=== PATIENT | female | born 1955 | race Caucasian/White ===

== ENCOUNTER 2018-10-18 20:09 | Inpatient (IN) | payer BC ==
[~2018-10-18] VITALS: Ht 149.9 cm; Wt 76.9 kg
--- NOTE | 2018-10-18 22:39 | PDOC ---
Exam Note: Aleksandar Note: Please also refer to the separate dictated note~for this date of service dictated separately. Discussed the patient with Nursing staff reviewed the chart.~Reviewed interim history and current functioning. Reviewed vital signs,~ Labs/ Radiology~and current medications noted below. Continue current treatment with the changes noted in the dictated addendum note Current Medications: I have reviewed the current psychotropics carefully including drug interactions. Risk benefit ratio favors no change other than as noted in my dictated progress note. EVA JAMES MD Oct 18, 2018 22:39
[2018-10-18] MEDS ORDERED: ALBUTEROL SULFATE 2.5 MG/3 ML NEBU. NEB PRN (22:45)
[2018-10-18 23:03] VITALS: BP 103/63
[2018-10-18] MEDS ORDERED: LEVO137T3 PO (23:18)
[2018-10-18] MEDS ORDERED: OLAN5TAB5 PO (23:18)
[2018-10-18] MEDS ORDERED: ALEN70TA60 PO (23:18)
[2018-10-18] MEDS ORDERED: CALC-30 PO (23:18)
[2018-10-18] MEDS ORDERED: ALBU2.5V5 NEB (23:18)
[2018-10-18] MEDS ORDERED: EZET1TAB30 PO (23:18)
[2018-10-18] MEDS ORDERED: NINT150C PO (23:18)
[2018-10-18] MEDS ORDERED: ARIP5TAB13 PO (23:18)
[2018-10-18] MEDS ORDERED: AMAN100T PO (23:18)
[2018-10-18] MEDS ORDERED: MELA3TAB2 PO (23:18)
[2018-10-18] MEDS ORDERED: OMEG100021 PO (23:18)
[2018-10-18] MEDS ORDERED: DULO60CA6 PO (23:18)
[2018-10-18] MEDS ORDERED: ALBUTEROL SULFATE 2.5 MG/3 ML NEBU. NEB SCH (23:30)
[2018-10-19] MEDS ORDERED: MAG HYDROX/AL HYDROX/SIMETH 30 ML ORAL.SUSP PO PRN
[2018-10-19] MEDS ORDERED: ACETAMINOPHEN 325 MG TABLET PO PRN
[2018-10-19] MEDS ORDERED: MAGNESIUM HYDROXIDE 2,400 MG/30 ML ORAL.SUSP. PO PRN
[2018-10-19] MEDS ORDERED: METHYL SALICYLATE/MENTHOL TOPICAL OINTMENT 29GM TUBE. TP PRN
[2018-10-19] MEDS ORDERED: TRAZ-86 PO (00:45)
[2018-10-19 05:38] VITALS: BP 163/88
[2018-10-19] MEDS: LEVOTHYROXINE 137 MCG TABLET PO SCH (06:00)
[2018-10-19 08:18] LABS: BASO # 0.1 x10^3/uL (0.0-0.2); BASO % 1 % (0-3); EOS # 0.3 x10^3/uL (0.0-0.7); EOS % 5 % (0-3); HEMOGLOBIN 10.5 g/dL (12.0-15.5); LYMPH % 29 % (24-48); MEAN CORPUSCULAR HEMOGLOBIN 33 pg (25-35); MEAN CORPUSCULAR HGB CONC 34 g/dL (31-37); MEAN CORPUSCULAR VOLUME 98 fL (79-100); MONO # 0.9 x10^3/uL (0.0-1.1); MONO % 13 % (0-9); NEUT # 3.6 x10^3uL (1.8-7.7); NEUT % 53 % (31-73); PLATELET COUNT 346 x10^3/uL (140-400); RED BLOOD COUNT 3.16 x10^6/uL (3.50-5.40); RED CELL DISTRIBUTION WIDTH 14.6 % (11.5-14.5); WHITE BLOOD COUNT 6.9 x10^3/uL (4.0-11.0)
[2018-10-19 08:22] LABS: ALBUMIN 2.4 g/dL (3.4-5.0); ALBUMIN/GLOBULIN RATIO 0.7 (1.0-1.7); CALCIUM 8.8 mg/dL (8.5-10.1); CREATININE 0.9 mg/dL (0.6-1.0); MAGNESIUM 1.7 mg/dL (1.8-2.4); POTASSIUM 3.8 mmol/L (3.5-5.1); TOTAL BILIRUBIN 0.4 mg/dL (0.2-1.0); TOTAL PROTEIN 5.8 g/dL (6.4-8.2)
[2018-10-19] MEDS: EZETIMIBE 10 MG TABLET PO SCH (08:28)
[2018-10-19] MEDS: OMEGA-3 FATTY ACIDS/FISH OIL 1,000 MG CAPSULE. PO SCH (08:28)
[2018-10-19] MEDS: SIMVASTATIN 20 MG TABLET PO SCH (08:28)
[2018-10-19] MEDS: ARIPiprazole 5 MG TABLET PO SCH (08:28)
[2018-10-19] MEDS: CALCIUM CARB/VIT D3 500/200 TABLET PO SCH ×2 (08:28→08:31)
[2018-10-19] MEDS: DULoxetine HCL 60 MG CAPSULE.DR PO SCH (08:28)
[2018-10-19] MEDS: AMANTADINE HCL 100 MG CAPSULE PO SCH (08:30)
[2018-10-19] MEDS: NINTEDANIB ESYLATE 150 MG PO SCH ×2 (09:00→19:44)
[2018-10-19 13:35] LABS: THYROID STIM HORMONE (TSH) 1.767 uIU/mL (0.358-3.740)
[2018-10-19 16:42] VITALS: BP 116/77
[2018-10-19 18:39] LABS: BACTERIA,URINE MANY /HPF (0-FEW); BILIRUBIN,URINE NEG (NEG); CLARITY,URINE CLOUDY; COLOR,URINE AMBER; GLUCOSE,URINE NEG (NEG); NITRITE,URINE POS (NEG); SQUAMOUS EPITHELIAL CELL,UR FEW /LPF; UROBILINOGEN,URINE 0.2 mg/dL (0.2 mg/dL); WBC,URINE >40 /HPF (0-4)
[2018-10-19 18:40] LABS: HYALINE CASTS, URINE FEW /HPF
--- NOTE | 2018-10-19 18:51 | HP ---
ADMIT DATE: 10/18/2018 PSYCHIATRIC ADMISSION HISTORY, EVALUATION This note covers elements not covered in my initial note of 10/19. IDENTIFYING DATA: The patient is a 62-year-old female referred to us from [facility] by Dr. Arielle Eubanks on account of worsening symptoms of depression with psychotic features. The patient has been refusing to eat, has had a 70-pound weight loss. She has been delusional, disorganized, depressed. She has had marked insomnia, anxious, obsessive with intermittent racing thoughts, marked paranoia. She has failed outpatient psychiatric interventions and has been treated on Cymbalta, melatonin, trazodone in the past. She has been in outpatient treatment at [facility] in [place], but has failed all of these and additional treatment on Zyprexa and Seroquel had failed as well. Behaviors were deemed dangerous due to her significant weight loss, delusion, marked depression. She has been living at home with her , unmanageable, referred from the [facility] where she has been an inpatient since 10/08/2018. CHIEF COMPLAINT: "I came here yesterday. Yes, I have been depressed. I want to be home with my ." The patient is being admitted by Rogelio Delgado, her spouse, MYRNA. HISTORY OF PRESENT ILLNESS: The patient has a history of worsening symptoms of depression, delusion, and marked obsessive thought processes. She has had poor appetite, weight loss noted above, significant insomnia, appeared even more confused. No active suicidal or homicidal ideation, but passive suicidal ideation as noted above. No clear history of bipolar disorder. PAST PSYCHIATRIC HISTORY: As above. PAST MEDICAL HISTORY: Positive for idiopathic pulmonary fibrosis, respiratory failure, obstructive sleep apnea, hypertension, acute encephalopathy diagnosed at [facility], hypothyroidism, history of OH, chronic back pain, spinal stenosis, 70-pound weight loss. ACCU-CHEKS: None. DIET: Regular. Takes medications whole. Ambulates with walker with assist. CODE STATUS: Full code. ALLERGIES: PREDNISONE, ASPIRIN, BAND-AIDS. CURRENT PSYCHOTROPICS: Cymbalta 60 mg a day, melatonin 5 mg at bedtime, amantadine 100 mg daily, Zyprexa 5 mg at bedtime, Abilify 5 mg a day, trazodone 50 mg at bedtime. FAMILY HISTORY: Noncontributory. SOCIAL HISTORY: No history of alcohol, drug abuse, physical, sexual, or elder abuse. She is not known to be a perpetrator. She said she never worked outside the home, has been a homemaker, has 2 adult children, one in [place] and one in [place]. She was living at home with her . REACTION TO HOSPITALIZATION: The patient accepting of it reluctantly. ASSETS: Supportive family including her . MENTAL STATUS EXAMINATION: The patient was seen individually evening of 10/19. She is sad, withdrawn, depressed. Speech, moderate to marked latency, often responses monosyllabic. Abstraction fair. Computation, she was unable to do even one step on serial 7. She did know the year was 2018, it was September and unaware of the date. When questioned about who the president was, she did not remember his name, but said he has "blonde hair." Attention span is short. Language function intact. Mood is depressed, anxious, withdrawn, paranoid, suspicious. Affect is mood congruent. IMPRESSION: Major depressive disorder with psychotic features; anxiety disorder, unspecified; cognitive disorder, unspecified; impulse control disorder, unspecified. Rest as above. PLAN: Admit to Geropsychiatry Unit at [facility]. I will see the patient daily individually from a psychiatric standpoint, medical followup with Dr. Saeed. The patient is on 2 atypical antipsychotics, Zyprexa and Abilify and we will simplify this regimen after the baseline assessment. Make further changes post baseline assessment. EVA JAMES MD DR: ABDELRAHMAN/tree JOB#: [id number] / [id number]
[2018-10-19 19:13] LABS: THYROXINE 9.5 ug/dL (4.5-12.0)
[2018-10-19] MEDS: traZODone 100 MG TABLET. PO SCH (19:44)
[2018-10-19] MEDS: MELATONIN 3 MG TABLET PO SCH (19:44)
[2018-10-19 20:10] LABS: HEMOGLOBIN A1C 5.1 % (4.8-5.6)
--- NOTE | 2018-10-19 22:06 | CONS ---
DATE OF CONSULTATION: 10/19/2018 REASON FOR CONSULTATION: Medical management. HISTORY OF PRESENT ILLNESS: The patient is a 62-year-old female patient, who apparently was seen at the [facility] Emergency Room and was admitted to this unit on account of refusing to eat and excessive weight loss more than 70 pounds. She is delusional, disorganized with marked depression, insomnia, anxious, obsessive, racing thoughts, paranoid. She apparently was treated with Cymbalta, melatonin and trazodone without much improvement and was admitted to this unit for inpatient psychiatric stabilization. When I spoke to her this afternoon, she stated that she feels that she has lost, but denied any other complaints. PAST MEDICAL HISTORY: Significant for allergic rhinitis, anxiety, basal cell carcinoma on the skin, depression, history of colon polyps, hyperlipidemia, hypertension, hypothyroidism, osteoporosis, chronic pain syndrome. She is known to have psychosis and violent behavior as well as shingles. She was diagnosed with idiopathic pulmonary fibrosis about a year ago and was on Nintedanib and apparently was admitted in 10/08/2018 to [facility] with severe hypokalemia, poor appetite, extremely low magnesium with the management of only 1.1. At that time, her liver function tests were slightly elevated. She has also metabolic alkalosis and apparently these are all expected side effects of the medication for her idiopathic pulmonary fibrosis. PAST SURGICAL HISTORY: Significant for back surgery, skin cancer excision, septoplasty, laminectomy and arthroscopy of the left knee as well as the right knee, thoracoscopy, colonoscopy with polypectomy, nasal endoscopic sinus surgery and according to her, she has also a lung biopsy. FAMILY HISTORY: Positive for depression in her father and hypertension in her brother and mother. SOCIAL HISTORY: She is and lives with her . She quit smoking about 20 months ago. She smoked cigarettes. She has never chewed tobacco. She does not drink alcohol or use any recreational drugs. ALLERGIES: SHE IS ALLERGIC TO ASPIRIN, BAND-AID, AND PREDNISONE. MEDICATIONS: She is currently on following medications: She is on albuterol sulfate by nebulizer every 4 hours, Vytorin 10/20 one tablet once a day, omega-3 fatty acid 1000 mg daily, duloxetine 60 mg daily, trazodone 100 mg at bedtime, aripiprazole for Abilify 5 mg once a day, olanzapine 5 mg at bedtime, amantadine 100 mg daily, calcium carbonate with vitamin D3 500/400 one tablet once a day, Ofev 150 mg p.o. b.i.d., levothyroxine sodium 137 mcg daily, alendronate 70 mg weekly, melatonin 3 mg at bedtime. REVIEW OF SYSTEMS: As per history of present illness. PHYSICAL EXAMINATION GENERAL: When I examined her this afternoon, she was sitting comfortably in her chair, eating her dinner, in no apparent distress. She was clearly pale, but no jaundice, cyanosis or thyromegaly. No jugular venous distention. No limb edema. VITAL SIGNS: Her heart rate was 101, blood pressure 116/77, temperature was 97.4, respiratory rate was 18 and oxygen saturation was 98%. HEAD, EYES, EARS, NOSE, and THROAT: Showed normocephalic, atraumatic. NECK: Supple. HEART: Showed normal first and second heart sounds with no gallop, rub or murmur. CHEST: Shows central trachea, equally reduced expansion, reduced air entry, vesicular breath sounds with early, coarse crepitations in both sides. I could not appreciate any rhonchi. ABDOMEN: Slightly distended, soft, nontender. NEUROLOGIC: She is awake, alert, responding appropriately. All cranial nerves intact. EXTREMITIES: She moves her extremities without difficulty. She is mostly wheelchair bound. LABORATORY DATA: Showed a serum sodium 137, potassium 3.8, chloride 101, bicarbonate 33, anion gap of 3, BUN 14, creatinine 0.9, estimated GFR was 63 mL per minute. Her glucose was 89, calcium was 8.8, magnesium was 1.7. Total bilirubin, AST, ALT, alkaline phosphatase were normal. Total protein was 5.8, albumin was 2.4. Serum iron was 53, TIBC was 164 and total iron saturation was 32. Her triglycerides were 96. Cholesterol 141, LDL was 86, VLDL was 19, and HDL cholesterol was 36 and the ratio was 3. Her 25-hydroxy vitamin D3 was 54. TSH was normal at 1.767. Her white cell count was 9600, hemoglobin 10, hematocrit 31, MCV 98 and platelet count 346,000. Her treponema pallidum antibody was nonreactive. IMPRESSION AND PLAN: In summary, this is a 62-year-old female patient with idiopathic pulmonary fibrosis, who was basically admitted as she has been refusing to eat and has lost weight. She lost more than 70 pounds. She was delusional, disorganized, depressed with insomnia, severe anxiety and obsessive, racing thoughts, paranoid. She has failed outpatient psychiatric intervention and was admitted here for inpatient psychiatric stabilization. Medically, she apparently is known to have idiopathic pulmonary fibrosis, chronic hypoxic respiratory failure, obstructive sleep apnea as well as hypertension. She is also hypothyroidism, osteoporosis, and hyperlipidemia. Her vital signs and all her lab work seems to be well within acceptable range. She has mild normochromic normocytic anemia and she has hypoalbuminemia consistent with severe protein-calorie malnutrition, but all other lab works seemed to be within acceptable range and all in all, she seemed to be medically stable. The hypoalbuminemia is reflecting her probably poor intake. I will definitely continue with all her current medications and will follow all her labs that are still pending at the time of this dictation and make any necessary recommendation. Thank you Dr. Maurer for allowing me to participate in the care of this patient. RENY JAEGER MD DR: RODRI/tree JOB#: [id number] / [id number]
--- NOTE | 2018-10-19 22:53 | PDOC ---
Exam Note: Aleksandar Note: Please also refer to the separate dictated note~for this date of service dictated separately.~Patient seen individually. Discussed the patient with Nursing staff reviewed the chart.~Reviewed interim history and current functioning. Reviewed vital signs,~Labs/ Radiology~and current medications noted below. Continue current treatment with the changes noted in the dictated addendum note Assessment: Vital Signs: Vital Signs Date Time Temp Pulse Resp B/P (MAP) Pulse Ox O2 Delivery O2 Flow Rate FiO2 10/19/18 16:42 97.4 101 18 116/77 (90) 98 10/18/18 23:03 Room Air I&O Intake and Output 10/19/18 07:01 Intake Total 400 ml Balance 400 ml Intake Oral 400 ml # Bowel Movements 1 Labs: Laboratory Tests Test 10/19/18 07:45 10/19/18 18:00 White Blood Count 6.9 x10^3/uL (4.0-11.0) Red Blood Count 3.16 x10^6/uL (3.50-5.40) L Hemoglobin 10.5 g/dL (12.0-15.5) L Hematocrit 31.0 % (36.0-47.0) L Mean Corpuscular Volume 98 fL (79-100) Mean Corpuscular Hemoglobin 33 pg (25-35) Mean Corpuscular Hemoglobin Concent 34 g/dL (31-37) Red Cell Distribution Width 14.6 % (11.5-14.5) H Platelet Count 346 x10^3/uL (140-400) Neutrophils (%) (Auto) 53 % (31-73) Lymphocytes (%) (Auto) 29 % (24-48) Monocytes (%) (Auto) 13 % (0-9) H Eosinophils (%) (Auto) 5 % (0-3) H Basophils (%) (Auto) 1 % (0-3) Neutrophils # (Auto) 3.6 x10^3uL (1.8-7.7) Lymphocytes # (Auto) 2.0 x10^3/uL (1.0-4.8) Monocytes # (Auto) 0.9 x10^3/uL (0.0-1.1) Eosinophils # (Auto) 0.3 x10^3/uL (0.0-0.7) Basophils # (Auto) 0.1 x10^3/uL (0.0-0.2) Sodium Level 137 mmol/L (136-145) Potassium Level 3.8 mmol/L (3.5-5.1) Chloride Level 101 mmol/L (98-107) Carbon Dioxide Level 33 mmol/L (21-32) H Anion Gap 3 (6-14) L Blood Urea Nitrogen 14 mg/dL (7-20) Creatinine 0.9 mg/dL (0.6-1.0) Estimated GFR (Cockcroft-Gault) 63.0 BUN/Creatinine Ratio 16 (6-20) Glucose Level 89 mg/dL (70-99) Hemoglobin A1c 5.1 % (4.8-5.6) Calcium Level 8.8 mg/dL (8.5-10.1) Magnesium Level 1.7 mg/dL (1.8-2.4) L Iron Level 53 ug/dL (50-170) Total Iron Binding Capacity 164 ug/dL (250-450) L Iron Saturation 32 % (15-34) Total Bilirubin 0.4 mg/dL (0.2-1.0) Aspartate Amino Transferase (AST) 24 U/L (15-37) Alanine Aminotransferase (ALT) 24 U/L (14-59) Alkaline Phosphatase 44 U/L (46-116) L Total Protein 5.8 g/dL (6.4-8.2) L Albumin 2.4 g/dL (3.4-5.0) L Albumin/Globulin Ratio 0.7 (1.0-1.7) L Triglycerides Level 96 mg/dL (0-150) Cholesterol Level 141 mg/dL (0-200) LDL Cholesterol, Calculated 86 mg/dL (0-100) VLDL Cholesterol, Calculated 19 mg/dL (0-40) Non-HDL Cholesterol Calculated 105 mg/dL (0-129) HDL Cholesterol 36 mg/dL (40-60) L Cholesterol/HDL Ratio 3.0 Vitamin B12 Level 452 pg/mL (232-1245) 25-Hydroxy Vitamin D Total 54.0 ng/mL (30-100) Thyroid Stimulating Hormone (TSH) 1.767 uIU/mL (0.358-3.740) Thyroxine (T4) 9.5 ug/dL (4.5-12.0) Total Triiodothyronine (TT3) 90 ng/dL (71-180) Treponema pallidum Antibody Nonreactive (Nonreactive) Urine Collection Type Void Urine Color Evelin Urine Clarity Cloudy Urine pH 5.5 Urine Specific [place] >=1.030 Urine Protein 30 mg/dl (NEG-TRACE) Urine Glucose (UA) Neg mg/dL (NEG) Urine Ketones (Stick) Trace mg/dL (NEG) Urine Blood Trace (NEG) Urine Nitrite Pos (NEG) Urine Bilirubin Neg (NEG) Urine Urobilinogen Dipstick 0.2 mg/dL (0.2 mg/dL) Urine Leukocyte Esterase Small (NEG) Urine RBC 1-2 /HPF (0-2) Urine WBC >40 /HPF (0-4) Urine Squamous Epithelial Cells Few /LPF Urine Bacteria Many /HPF (0-FEW) Urine Hyaline Casts Few /HPF Urine Mucus Slight /LPF Current Medications: Meds: Current Medications Albuterol Sulfate (Ventolin) 2.5 mg PRN Q4HRS PRN NEB SHORTNESS OF BREATH; Start 10/18/18 at 22:45 Albuterol Sulfate (Ventolin) 2.5 mg PRN Q4HRS NEB ; Start 10/18/18 at 23:30; Status UNV Levothyroxine Sodium (Synthroid) 137 mcg DAILY06 PO Last administered on at 06:00; Start 10/19/18 at 06:00 Olanzapine (ZyPREXA ZYDIS) 5 mg HS PO Last administered on 10/19/18at 19:44; Start 10/19/18 at 21:00 Alendronate Sodium (Fosamax) 70 mg WEEKLY@0600 PO ; Start 10/25/18 at 06:00 Amantadine HCl (Symmetrel) 100 mg DAILY PO Last administered on 10/19/18at 08:30 ; Start 10/19/18 at 09:00 Aripiprazole (Abilify) 5 mg DAILY PO Last administered on 10/19/18 08:28; Start 10/19/18 at 09:00 Calcium/Vitamin D (Oscal D 500mg/ 200uts) 1 tab DAILY PO Last administered on at 08:31; Start 10/19/18 at 08:00 Duloxetine HCl (Cymbalta) 60 mg DAILY PO Last administered on 10/19/18at 08:28; Start 10/19/18 at 09:00 EZETIMIBE (Zetia) 10 mg DAILY PO Last administered on 10/19/18 08:28; Start at 09:00 Melatonin 3 mg QHS PO Last administered on 10/19/18at 19:44; Start 10/19/18 at 21:00 Non-Formulary Medication (Nintedanib Esylate (Ofev)) 150 mg BID PO ; Start 10/19 at 09:00; Status UNV Fish Oil (Fish Oil) 1,000 mg DAILY PO Last administered on 10/19/18at 08:28; Start 10/19/18 at 09:00 Acetaminophen (Tylenol) 650 mg PRN Q6HRS PRN PO PAIN / TEMP; Start 10/19/18 at 00:00 Multi-Ingredient Ointment (Analgesic [place]) 1 nabil PRN QID PRN TP MUSCLE PAIN; Start 10/19/18 at 00:00 Al Hydroxide/Mg Hydroxide (Mylanta Plus Xs) 15 ml PRN AFTMEALHC PRN PO DYSPEPSIA; Start 10/19/18 at 00:00 Magnesium Hydroxide (Milk Of Magnesia) 2,400 mg PRN QHS PRN PO CONSTIPATION; Start 10/19/18 at 00:00 Trazodone HCl (Desyrel) 100 mg HS PO Last administered on 10/19/18 19:44; Start 10/19/18 at 21:00 Simvastatin (Zocor) 20 mg DAILY PO Last administered on 10/19/18at 08:28; Start 10/19/18 at 09:00 Active Scripts Active Reported Trazodone Hcl 100 Mg Tablet 100 Mg PO HS Ofev (Nintedanib Esylate) 150 Mg Capsule 150 Mg PO BID Melatonin 3 Mg Tablet 5 Mg PO HS Levothyroxine Sodium 137 Mcg Tablet 137 Mcg PO DAILYAC Fish Oil 1,000 mg Softgel ([place]-3/Dha/Epa/Fish Oil) 1,000 Mg Capsule 1,000 Mg PO DAILY Cymbalta (Duloxetine Hcl) 60 Mg Capsule.dr 60 Mg PO DAILY Calcium 500 + Vit D 400 Tablet (Calcium Carbonate/Vitamin D3) 1 Each Tablet 1 Each PO DAILY Vytorin 10-20 Mg Tablet (Ezetimibe/Simvastatin) 1 Each Tablet 1 Each PO DAILY Abilify (Aripiprazole) 5 Mg Tablet 5 Mg PO DAILY Alendronate Sodium 70 Mg Tablet 70 Mg PO WEEKLY Zyprexa Zydis (Olanzapine) 5 Mg Tab.rapdis 5 Mg PO HS Amantadine (Amantadine Hcl) 100 Mg Tablet 100 Mg PO DAILY Albuterol Sulfate Neb Soln (Albuterol Sulfate) 2.5 Mg/3 Ml Vial.neb 1 Vial NEB PRN Q4HRS I have reviewed the current psychotropics carefully including drug interactions. Risk benefit ratio favors no change other than as noted in my dictated progress note. EVA JAMES MD Oct 19, 2018 22:53
[2018-10-20 06:02] VITALS: BP 94/59
[2018-10-20] MEDS: LEVOTHYROXINE 137 MCG TABLET PO SCH (06:32)
[2018-10-20] MEDS: NINTEDANIB ESYLATE 150 MG PO SCH ×2 (09:00→20:47)
[2018-10-20] MEDS: ARIPiprazole 5 MG TABLET PO SCH (09:38)
[2018-10-20] MEDS: DULoxetine HCL 60 MG CAPSULE.DR PO SCH (09:38)
[2018-10-20] MEDS: OMEGA-3 FATTY ACIDS/FISH OIL 1,000 MG CAPSULE. PO SCH (09:38)
[2018-10-20] MEDS: CALCIUM CARB/VIT D3 500/200 TABLET PO SCH (09:38)
[2018-10-20] MEDS: EZETIMIBE 10 MG TABLET PO SCH (09:38)
[2018-10-20] MEDS: SIMVASTATIN 20 MG TABLET PO SCH (09:38)
[2018-10-20] MEDS: AMANTADINE HCL 100 MG CAPSULE PO SCH (09:39)
[2018-10-20 16:54] VITALS: BP 139/79
[2018-10-20] MEDS: traZODone 100 MG TABLET. PO SCH (20:47)
[2018-10-20] MEDS: MELATONIN 3 MG TABLET PO SCH (20:47)
--- NOTE | 2018-10-20 22:40 | PDOC ---
Exam Note: Aleksandar Note: Please also refer to the separate dictated note~for this date of service dictated separately.~Patient seen individually. Discussed the patient with Nursing staff reviewed the chart.~Reviewed interim history and current functioning. Reviewed vital signs,~Labs/ Radiology~and current medications noted below. Continue current treatment with the changes noted in the dictated addendum note Assessment: Vital Signs: Vital Signs Date Time Temp Pulse Resp B/P (MAP) Pulse Ox O2 Delivery O2 Flow Rate FiO2 10/20/18 16:54 98.0 90 19 139/79 (99) 98 Room Air I&O Intake and Output 10/20/18 07:01 Intake Total 480 ml Balance 480 ml Intake Oral 480 ml # Voids 1 Current Medications: Meds: Current Medications Albuterol Sulfate (Ventolin) 2.5 mg PRN Q4HRS PRN NEB SHORTNESS OF BREATH; Start 10/18/18 at 22:45 Albuterol Sulfate (Ventolin) 2.5 mg PRN Q4HRS NEB ; Start 10/18/18 at 23:30; Status UNV Levothyroxine Sodium (Synthroid) 137 mcg DAILY06 PO Last administered on at 06:32; Start 10/19/18 at 06:00 Olanzapine (ZyPREXA ZYDIS) 5 mg HS PO Last administered on 10/20/18at 20:47; Start 10/19/18 at 21:00 Alendronate Sodium (Fosamax) 70 mg WEEKLY@0600 PO ; Start 10/25/18 at 06:00 Amantadine HCl (Symmetrel) 100 mg DAILY PO Last administered on 10/20/18at 09:39 ; Start 10/19/18 at 09:00 Aripiprazole (Abilify) 5 mg DAILY PO Last administered on 10/20/18at 09:38; Start 10/19/18 at 09:00 Calcium/Vitamin D (Oscal D 500mg/ 200uts) 1 tab DAILY PO Last administered on at 09:38; Start 10/19/18 at 08:00 Duloxetine HCl (Cymbalta) 60 mg DAILY PO Last administered on 10/20/18at 09:38; Start 10/19/18 at 09:00; Stop 10/20/18 at 17:46; Status DC EZETIMIBE (Zetia) 10 mg DAILY PO Last administered on 10/20/18 09:38; Start at 09:00 Melatonin 3 mg QHS PO Last administered on 10/20/18 20:47; Start 10/19/18 at 21:00 Non-Formulary Medication (Nintedanib Esylate (Ofev)) 150 mg BID PO ; Start 10/19 at 09:00; Status UNV Fish Oil (Fish Oil) 1,000 mg DAILY PO Last administered on 10/20/18 09:38; Start 10/19/18 at 09:00 Acetaminophen (Tylenol) 650 mg PRN Q6HRS PRN PO PAIN / TEMP; Start 10/19/18 at 00:00 Multi-Ingredient Ointment (Analgesic [place]) 1 nabil PRN QID PRN TP MUSCLE PAIN; Start 10/19/18 at 00:00 Al Hydroxide/Mg Hydroxide (Mylanta Plus Xs) 15 ml PRN AFTMEALHC PRN PO DYSPEPSIA; Start 10/19/18 at 00:00 Magnesium Hydroxide (Milk Of Magnesia) 2,400 mg PRN QHS PRN PO CONSTIPATION; Start 10/19/18 at 00:00 Trazodone HCl (Desyrel) 100 mg HS PO Last administered on 10/20/18 20:47; Start 10/19/18 at 21:00 Simvastatin (Zocor) 20 mg DAILY PO Last administered on 10/20/18 09:38; Start 10/19/18 at 09:00 Fluvoxamine Maleate (Luvox) 25 mg QHS PO Last administered on 10/20/18 20:48; Start 10/20/18 at 21:00; Stop 10/22/18 at 23:00 Fluvoxamine Maleate (Luvox) 50 mg QHS PO ; Start 10/23/18 at 21:00 Active Scripts Active Reported Trazodone Hcl 100 Mg Tablet 100 Mg PO HS Ofev (Nintedanib Esylate) 150 Mg Capsule 150 Mg PO BID Melatonin 3 Mg Tablet 5 Mg PO HS Levothyroxine Sodium 137 Mcg Tablet 137 Mcg PO DAILYAC Fish Oil 1,000 mg Softgel ([place]-3/Dha/Epa/Fish Oil) 1,000 Mg Capsule 1,000 Mg PO DAILY Cymbalta (Duloxetine Hcl) 60 Mg Capsule.dr 60 Mg PO DAILY Calcium 500 + Vit D 400 Tablet (Calcium Carbonate/Vitamin D3) 1 Each Tablet 1 Each PO DAILY Vytorin 10-20 Mg Tablet (Ezetimibe/Simvastatin) 1 Each Tablet 1 Each PO DAILY Abilify (Aripiprazole) 5 Mg Tablet 5 Mg PO DAILY Alendronate Sodium 70 Mg Tablet 70 Mg PO WEEKLY Zyprexa Zydis (Olanzapine) 5 Mg Tab.rapdis 5 Mg PO HS Amantadine (Amantadine Hcl) 100 Mg Tablet 100 Mg PO DAILY Albuterol Sulfate Neb Soln (Albuterol Sulfate) 2.5 Mg/3 Ml Vial.neb 1 Vial NEB PRN Q4HRS I have reviewed the current psychotropics carefully including drug interactions. Risk benefit ratio favors no change other than as noted in my dictated progress note. EVA JAMES MD Oct 20, 2018 22:40
[2018-10-21] MEDS: LEVOTHYROXINE 137 MCG TABLET PO SCH (05:52)
[2018-10-21 06:29] VITALS: BP 115/67
[2018-10-21] MEDS: OMEGA-3 FATTY ACIDS/FISH OIL 1,000 MG CAPSULE. PO SCH (08:39)
[2018-10-21] MEDS: ARIPiprazole 5 MG TABLET PO SCH (08:39)
[2018-10-21] MEDS: CALCIUM CARB/VIT D3 500/200 TABLET PO SCH (08:39)
[2018-10-21] MEDS: SIMVASTATIN 20 MG TABLET PO SCH (08:41)
[2018-10-21] MEDS: EZETIMIBE 10 MG TABLET PO SCH (08:41)
[2018-10-21] MEDS: AMANTADINE HCL 100 MG CAPSULE PO SCH (08:41)
[2018-10-21] MEDS: NINTEDANIB ESYLATE 150 MG PO SCH ×2 (09:00→20:14)
[2018-10-21 11:26] VITALS: BP 107/75
[2018-10-21 15:54] VITALS: BP 112/78
[2018-10-21] MEDS: MELATONIN 3 MG TABLET PO SCH (20:14)
[2018-10-21] MEDS: traZODone 100 MG TABLET. PO SCH (20:14)
--- NOTE | 2018-10-21 22:19 | PDOC ---
Exam Note: Aleksandar Note: Please also refer to the separate dictated note~for this date of service dictated separately.~Patient seen individually. Discussed the patient with Nursing staff reviewed the chart.~Reviewed interim history and current functioning. Reviewed vital signs,~Labs/ Radiology~and current medications noted below. Continue current treatment with the changes noted in the dictated addendum note Assessment: Vital Signs: Vital Signs Date Time Temp Pulse Resp B/P (MAP) Pulse Ox O2 Delivery O2 Flow Rate FiO2 10/21/18 15:54 97.4 108 20 112/78 (89) 96 10/20/18 16:54 Room Air I&O Intake and Output 10/21/18 07:01 Intake Total 720 ml Balance 720 ml Intake Oral 720 ml # Voids 1 Current Medications: Meds: Current Medications Albuterol Sulfate (Ventolin) 2.5 mg PRN Q4HRS PRN NEB SHORTNESS OF BREATH; Start 10/18/18 at 22:45 Albuterol Sulfate (Ventolin) 2.5 mg PRN Q4HRS NEB ; Start 10/18/18 at 23:30; Status UNV Levothyroxine Sodium (Synthroid) 137 mcg DAILY06 PO Last administered on at 05:52; Start 10/19/18 at 06:00 Olanzapine (ZyPREXA ZYDIS) 5 mg HS PO Last administered on 10/21/18at 20:14; Start 10/19/18 at 21:00 Alendronate Sodium (Fosamax) 70 mg WEEKLY@0600 PO ; Start 10/25/18 at 06:00 Amantadine HCl (Symmetrel) 100 mg DAILY PO Last administered on 10/21/18at 08:41 ; Start 10/19/18 at 09:00 Aripiprazole (Abilify) 5 mg DAILY PO Last administered on 10/21/18at 08:39; Start 10/19/18 at 09:00 Calcium/Vitamin D (Oscal D 500mg/ 200uts) 1 tab DAILY PO Last administered on at 08:39; Start 10/19/18 at 08:00 Duloxetine HCl (Cymbalta) 60 mg DAILY PO Last administered on 10/20/18at 09:38; Start 10/19/18 at 09:00; Stop 10/20/18 at 17:46; Status DC EZETIMIBE (Zetia) 10 mg DAILY PO Last administered on 10/21/18 08:41; Start at 09:00 Melatonin 3 mg QHS PO Last administered on 10/21/18at 20:14; Start 10/19/18 at 21:00 Non-Formulary Medication (Nintedanib Esylate (Ofev)) 150 mg BID PO ; Start 10/19 at 09:00; Status UNV Fish Oil (Fish Oil) 1,000 mg DAILY PO Last administered on 10/21/18at 08:39; Start 10/19/18 at 09:00 Acetaminophen (Tylenol) 650 mg PRN Q6HRS PRN PO PAIN / TEMP; Start 10/19/18 at 00:00 Multi-Ingredient Ointment (Analgesic [place]) 1 nabil PRN QID PRN TP MUSCLE PAIN; Start 10/19/18 at 00:00 Al Hydroxide/Mg Hydroxide (Mylanta Plus Xs) 15 ml PRN AFTMEALHC PRN PO DYSPEPSIA; Start 10/19/18 at 00:00 Magnesium Hydroxide (Milk Of Magnesia) 2,400 mg PRN QHS PRN PO CONSTIPATION; Start 10/19/18 at 00:00 Trazodone HCl (Desyrel) 100 mg HS PO Last administered on 10/21/18at 20:14; Start 10/19/18 at 21:00 Simvastatin (Zocor) 20 mg DAILY PO Last administered on 10/21/18 08:41; Start 10/19/18 at 09:00 Fluvoxamine Maleate (Luvox) 25 mg QHS PO Last administered on 10/21/18at 20:14; Start 10/20/18 at 21:00; Stop 10/22/18 at 23:00 Fluvoxamine Maleate (Luvox) 50 mg QHS PO ; Start 10/23/18 at 21:00 Active Scripts Active Reported Trazodone Hcl 100 Mg Tablet 100 Mg PO HS Ofev (Nintedanib Esylate) 150 Mg Capsule 150 Mg PO BID Melatonin 3 Mg Tablet 5 Mg PO HS Levothyroxine Sodium 137 Mcg Tablet 137 Mcg PO DAILYAC Fish Oil 1,000 mg Softgel ([place]-3/Dha/Epa/Fish Oil) 1,000 Mg Capsule 1,000 Mg PO DAILY Cymbalta (Duloxetine Hcl) 60 Mg Capsule.dr 60 Mg PO DAILY Calcium 500 + Vit D 400 Tablet (Calcium Carbonate/Vitamin D3) 1 Each Tablet 1 Each PO DAILY Vytorin 10-20 Mg Tablet (Ezetimibe/Simvastatin) 1 Each Tablet 1 Each PO DAILY Abilify (Aripiprazole) 5 Mg Tablet 5 Mg PO DAILY Alendronate Sodium 70 Mg Tablet 70 Mg PO WEEKLY Zyprexa Zydis (Olanzapine) 5 Mg Tab.rapdis 5 Mg PO HS Amantadine (Amantadine Hcl) 100 Mg Tablet 100 Mg PO DAILY Albuterol Sulfate Neb Soln (Albuterol Sulfate) 2.5 Mg/3 Ml Vial.neb 1 Vial NEB PRN Q4HRS I have reviewed the current psychotropics carefully including drug interactions. Risk benefit ratio favors no change other than as noted in my dictated progress note. EVA JAMES MD Oct 21, 2018 22:19
--- NOTE | 2018-10-22 01:43 | PN ---
DATE: 10/20/2018 PSYCHIATRIC PROGRESS NOTE This is a late entry 10/20/2018, covers elements not covered in my initial note. SUBJECTIVE: I met with the patient in the evening. The patient slept 6-1/4 hours previous night. She has been quite ____, believes people are against her. Remains paranoid, as I discussed with her, appears helpless and the indicated that she does the similar behaviors at home. She walked 25 feet with physical therapy staff. Remains somewhat obsessive, repetitive. REVIEW OF SYSTEMS: Ambulation impaired, in wheelchair. No CV, , pulmonary, eye, ENT system symptoms on review. MENTAL STATUS EXAM: Oriented to herself and situation. Speech has some latency, low in volume, coherent, abstraction fair, computation impaired, language function intact, attention span short. Mood and affect remains anxious, obsessive, labile, withdrawn. LABORATORY DATA: Reviewed. IMPRESSION: Major depressive disorder with psychotic features; cognitive disorder, unspecified; anxiety disorder, unspecified. PLAN: We will go ahead and increase the Luvox to 50 mg a day after she has been on 25 mg for 3 days. Continue rest of the psychotropics unchanged for now. EVA JAMES MD DR: ABDELRAHMAN/tree JOB#: [id number] / [id number]
[2018-10-22] MEDS: LEVOTHYROXINE 137 MCG TABLET PO SCH (05:46)
[2018-10-22 05:58] VITALS: BP 111/72
[2018-10-22] MEDS: AMANTADINE HCL 100 MG CAPSULE PO SCH (09:08)
[2018-10-22] MEDS: SIMVASTATIN 20 MG TABLET PO SCH (09:08)
[2018-10-22] MEDS: CALCIUM CARB/VIT D3 500/200 TABLET PO SCH (09:08)
[2018-10-22] MEDS: OMEGA-3 FATTY ACIDS/FISH OIL 1,000 MG CAPSULE. PO SCH (09:08)
[2018-10-22] MEDS: ARIPiprazole 5 MG TABLET PO SCH (09:08)
[2018-10-22] MEDS: EZETIMIBE 10 MG TABLET PO SCH (09:08)
[2018-10-22] MEDS: NINTEDANIB ESYLATE 150 MG PO SCH ×2 (09:20→20:55)
[2018-10-22 16:15] VITALS: BP 105/75
[2018-10-22] MEDS: traZODone 100 MG TABLET. PO SCH (20:54)
[2018-10-22] MEDS: MELATONIN 3 MG TABLET PO SCH (20:54)
[2018-10-22] MEDS: LACTOBACILLUS RHAMNOSUS GG 1 CAPSULE. PO SCH (20:58)
[2018-10-22] MEDS: CEFDINIR 300 MG CAPSULE PO SCH (20:58)
--- NOTE | 2018-10-22 23:00 | PDOC ---
Exam Note: Aleksandar Note: Please also refer to the separate dictated note~for this date of service dictated separately.~Patient seen individually. Discussed the patient with Nursing staff reviewed the chart.~Reviewed interim history and current functioning. Reviewed vital signs,~Labs/ Radiology~and current medications noted below. Continue current treatment with the changes noted in the dictated addendum note Assessment: Vital Signs: Vital Signs Date Time Temp Pulse Resp B/P (MAP) Pulse Ox O2 Delivery O2 Flow Rate FiO2 10/22/18 16:15 97.7 92 20 105/75 (85) 98 10/20/18 16:54 Room Air I&O Intake and Output 10/22/18 07:01 Intake Total 960 ml Balance 960 ml Intake Oral 960 ml # Voids 1 Current Medications: Meds: Current Medications Albuterol Sulfate (Ventolin) 2.5 mg PRN Q4HRS PRN NEB SHORTNESS OF BREATH; Start 10/18/18 at 22:45 Albuterol Sulfate (Ventolin) 2.5 mg PRN Q4HRS NEB ; Start 10/18/18 at 23:30; Status UNV Levothyroxine Sodium (Synthroid) 137 mcg DAILY06 PO Last administered on at 05:46; Start 10/19/18 at 06:00 Olanzapine (ZyPREXA ZYDIS) 5 mg HS PO Last administered on 10/22/18at 20:54; Start 10/19/18 at 21:00 Alendronate Sodium (Fosamax) 70 mg WEEKLY@0600 PO ; Start 10/25/18 at 06:00 Amantadine HCl (Symmetrel) 100 mg DAILY PO Last administered on 10/22/18at 09:08 ; Start 10/19/18 at 09:00 Aripiprazole (Abilify) 5 mg DAILY PO Last administered on 10/22/18at 09:08; Start 10/19/18 at 09:00 Calcium/Vitamin D (Oscal D 500mg/ 200uts) 1 tab DAILY PO Last administered on at 09:08; Start 10/19/18 at 08:00 Duloxetine HCl (Cymbalta) 60 mg DAILY PO Last administered on 10/20/18at 09:38; Start 10/19/18 at 09:00; Stop 10/20/18 at 17:46; Status DC EZETIMIBE (Zetia) 10 mg DAILY PO Last administered on 10/22/18 09:08; Start at 09:00 Melatonin 3 mg QHS PO Last administered on 10/22/18 20:54; Start 10/19/18 at 21:00 Non-Formulary Medication (Nintedanib Esylate (Ofev)) 150 mg BID PO ; Start 10/19 at 09:00; Status UNV Fish Oil (Fish Oil) 1,000 mg DAILY PO Last administered on 10/22/18at 09:08; Start 10/19/18 at 09:00 Acetaminophen (Tylenol) 650 mg PRN Q6HRS PRN PO PAIN / TEMP; Start 10/19/18 at 00:00 Multi-Ingredient Ointment (Analgesic [place]) 1 nabil PRN QID PRN TP MUSCLE PAIN; Start 10/19/18 at 00:00 Al Hydroxide/Mg Hydroxide (Mylanta Plus Xs) 15 ml PRN AFTMEALHC PRN PO DYSPEPSIA; Start 10/19/18 at 00:00 Magnesium Hydroxide (Milk Of Magnesia) 2,400 mg PRN QHS PRN PO CONSTIPATION Last administered on 10/22/18 13:59; Start 10/19/18 at 00:00 Trazodone HCl (Desyrel) 100 mg HS PO Last administered on 10/22/18at 20:54; Start 10/19/18 at 21:00 Simvastatin (Zocor) 20 mg DAILY PO Last administered on 10/22/18 09:08; Start 10/19/18 at 09:00 Fluvoxamine Maleate (Luvox) 25 mg QHS PO Last administered on 10/22/18 20:54; Start 10/20/18 at 21:00; Stop 10/22/18 at 23:00 Fluvoxamine Maleate (Luvox) 50 mg QHS PO ; Start 10/23/18 at 21:00 Cefdinir (Omnicef) 300 mg BIDWMEALS PO ; Start 10/22/18 at 19:00 Lactobacillus Rhamnosus (Culturelle) 1 cap BID PO Last administered on 20:58; Start 10/22/18 at 21:00; Stop 11/05/18 at 20:59 Active Scripts Active Reported Trazodone Hcl 100 Mg Tablet 100 Mg PO HS Ofev (Nintedanib Esylate) 150 Mg Capsule 150 Mg PO BID Melatonin 3 Mg Tablet 5 Mg PO HS Levothyroxine Sodium 137 Mcg Tablet 137 Mcg PO DAILYAC Fish Oil 1,000 mg Softgel ([place]-3/Dha/Epa/Fish Oil) 1,000 Mg Capsule 1,000 Mg PO DAILY Cymbalta (Duloxetine Hcl) 60 Mg Capsule.dr 60 Mg PO DAILY Calcium 500 + Vit D 400 Tablet (Calcium Carbonate/Vitamin D3) 1 Each Tablet 1 Each PO DAILY Vytorin 10-20 Mg Tablet (Ezetimibe/Simvastatin) 1 Each Tablet 1 Each PO DAILY Abilify (Aripiprazole) 5 Mg Tablet 5 Mg PO DAILY Alendronate Sodium 70 Mg Tablet 70 Mg PO WEEKLY Zyprexa Zydis (Olanzapine) 5 Mg Tab.rapdis 5 Mg PO HS Amantadine (Amantadine Hcl) 100 Mg Tablet 100 Mg PO DAILY Albuterol Sulfate Neb Soln (Albuterol Sulfate) 2.5 Mg/3 Ml Vial.neb 1 Vial NEB PRN Q4HRS I have reviewed the current psychotropics carefully including drug interactions. Risk benefit ratio favors no change other than as noted in my dictated progress note. EVA JAMES MD Oct 22, 2018 23:00
[2018-10-23] MEDS: LEVOTHYROXINE 137 MCG TABLET PO SCH (06:09)
[2018-10-23 06:11] VITALS: BP 110/72
[2018-10-23] MEDS: CALCIUM CARB/VIT D3 500/200 TABLET PO SCH (09:00)
[2018-10-23] MEDS: EZETIMIBE 10 MG TABLET PO SCH (09:00)
[2018-10-23] MEDS: OMEGA-3 FATTY ACIDS/FISH OIL 1,000 MG CAPSULE. PO SCH (09:00)
[2018-10-23] MEDS: LACTOBACILLUS RHAMNOSUS GG 1 CAPSULE. PO SCH ×2 (09:00→20:03)
[2018-10-23] MEDS: NINTEDANIB ESYLATE 150 MG PO SCH ×2 (09:00→20:06)
[2018-10-23] MEDS: SIMVASTATIN 20 MG TABLET PO SCH (09:00)
[2018-10-23] MEDS: ARIPiprazole 5 MG TABLET PO SCH (09:00)
[2018-10-23] MEDS: AMANTADINE HCL 100 MG CAPSULE PO SCH (09:00)
[2018-10-23] MEDS: CEFDINIR 300 MG CAPSULE PO SCH ×2 (11:27→17:43)
[2018-10-23 15:46] VITALS: BP 121/75
[2018-10-23] MEDS: traZODone 100 MG TABLET. PO SCH (20:03)
[2018-10-23] MEDS: MELATONIN 3 MG TABLET PO SCH (20:04)
[2018-10-23] MEDS: DOCUSATE SODIUM 100 MG CAPSULE PO SCH (20:06)
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
--- NOTE | 2018-10-23 22:58 | PDOC ---
Exam Note: Aleksandar Note: Please also refer to the separate dictated note~for this date of service dictated separately.~Patient seen individually. Discussed the patient with Nursing staff reviewed the chart.~Reviewed interim history and current functioning. Reviewed vital signs,~Labs/ Radiology~and current medications noted below. Continue current treatment with the changes noted in the dictated addendum note Assessment: Vital Signs: Vital Signs Date Time Temp Pulse Resp B/P (MAP) Pulse Ox O2 Delivery O2 Flow Rate FiO2 10/23/18 15:46 98.7 100 16 121/75 (90) 100 10/23/18 06:11 Room Air I&O Intake and Output 10/23/18 07:01 Intake Total 800 ml Output Total 175 ml Balance 625 ml Intake Oral 800 ml Output Urine Total 175 ml Current Medications: Meds: Current Medications Albuterol Sulfate (Ventolin) 2.5 mg PRN Q4HRS PRN NEB SHORTNESS OF BREATH; Start 10/18/18 at 22:45 Albuterol Sulfate (Ventolin) 2.5 mg PRN Q4HRS NEB ; Start 10/18/18 at 23:30; Status UNV Levothyroxine Sodium (Synthroid) 137 mcg DAILY06 PO Last administered on at 06:09; Start 10/19/18 at 06:00 Olanzapine (ZyPREXA ZYDIS) 5 mg HS PO Last administered on 10/23/18at 20:04; Start 10/19/18 at 21:00 Alendronate Sodium (Fosamax) 70 mg WEEKLY@0600 PO ; Start 10/25/18 at 06:00 Amantadine HCl (Symmetrel) 100 mg DAILY PO Last administered on 10/23/18at 09:00 ; Start 10/19/18 at 09:00 Aripiprazole (Abilify) 5 mg DAILY PO Last administered on 10/23/18at 09:00; Start 10/19/18 at 09:00 Calcium/Vitamin D (Oscal D 500mg/ 200uts) 1 tab DAILY PO Last administered on at 09:00; Start 10/19/18 at 08:00 Duloxetine HCl (Cymbalta) 60 mg DAILY PO Last administered on 10/20/18at 09:38; Start 10/19/18 at 09:00; Stop 10/20/18 at 17:46; Status DC EZETIMIBE (Zetia) 10 mg DAILY PO Last administered on 10/23/18 09:00; Start at 09:00 Melatonin 3 mg QHS PO Last administered on 10/23/18at 20:04; Start 10/19/18 at 21:00 Non-Formulary Medication (Nintedanib Esylate (Ofev)) 150 mg BID PO ; Start 10/19 at 09:00; Status UNV Fish Oil (Fish Oil) 1,000 mg DAILY PO Last administered on 10/23/18at 09:00; Start 10/19/18 at 09:00 Acetaminophen (Tylenol) 650 mg PRN Q6HRS PRN PO PAIN / TEMP; Start 10/19/18 at 00:00 Multi-Ingredient Ointment (Analgesic [place]) 1 nabil PRN QID PRN TP MUSCLE PAIN; Start 10/19/18 at 00:00 Al Hydroxide/Mg Hydroxide (Mylanta Plus Xs) 15 ml PRN AFTMEALHC PRN PO DYSPEPSIA; Start 10/19/18 at 00:00 Magnesium Hydroxide (Milk Of Magnesia) 2,400 mg PRN QHS PRN PO CONSTIPATION Last administered on 10/22/18at 13:59; Start 10/19/18 at 00:00 Trazodone HCl (Desyrel) 100 mg HS PO Last administered on 10/23/18at 20:03; Start 10/19/18 at 21:00 Simvastatin (Zocor) 20 mg DAILY PO Last administered on 10/23/18 09:00; Start 10/19/18 at 09:00 Fluvoxamine Maleate (Luvox) 25 mg QHS PO Last administered on 10/22/18at 20:54; Start 10/20/18 at 21:00; Stop 10/22/18 at 23:00; Status DC Fluvoxamine Maleate (Luvox) 50 mg QHS PO Last administered on 10/23/18 20:06; Start 10/23/18 at 21:00 Cefdinir (Omnicef) 300 mg BIDWMEALS PO Last administered on 10/23/18 17:43; Start 10/22/18 at 19:00 Lactobacillus Rhamnosus (Culturelle) 1 cap BID PO Last administered on 1/28/ 19at 20:03; Start 10/22/18 at 21:00; Stop 11/05/18 at 20:59 Docusate Sodium (Colace) 100 mg BID PO Last administered on 10/23/18at 20:06; Start 10/23/18 at 21:00 Polyethylene Glycol (miraLAX) 17 gm DAILY PO ; Start 10/24/18 at 09:00 Active Scripts Active Reported Trazodone Hcl 100 Mg Tablet 100 Mg PO HS Ofev (Nintedanib Esylate) 150 Mg Capsule 150 Mg PO BID Melatonin 3 Mg Tablet 5 Mg PO HS Levothyroxine Sodium 137 Mcg Tablet 137 Mcg PO DAILYAC Fish Oil 1,000 mg Softgel ([place]-3/Dha/Epa/Fish Oil) 1,000 Mg Capsule 1,000 Mg PO DAILY Cymbalta (Duloxetine Hcl) 60 Mg Capsule.dr 60 Mg PO DAILY Calcium 500 + Vit D 400 Tablet (Calcium Carbonate/Vitamin D3) 1 Each Tablet 1 Each PO DAILY Vytorin 10-20 Mg Tablet (Ezetimibe/Simvastatin) 1 Each Tablet 1 Each PO DAILY Abilify (Aripiprazole) 5 Mg Tablet 5 Mg PO DAILY Alendronate Sodium 70 Mg Tablet 70 Mg PO WEEKLY Zyprexa Zydis (Olanzapine) 5 Mg Tab.rapdis 5 Mg PO HS Amantadine (Amantadine Hcl) 100 Mg Tablet 100 Mg PO DAILY Albuterol Sulfate Neb Soln (Albuterol Sulfate) 2.5 Mg/3 Ml Vial.neb 1 Vial NEB PRN Q4HRS I have reviewed the current psychotropics carefully including drug interactions. Risk benefit ratio favors no change other than as noted in my dictated progress note. EVA JAMES MD Oct 23, 2018 22:58
--- NOTE | 2018-10-24 03:25 | PN ---
DATE: 10/21/2018 This is a late entry for 10/21/2018 covers elements not covered in my initial note. SUBJECTIVE: I met with the patient in the evening. The patient slept 3-1/4 hours previous night. She remains fairly oriented, anxious, previous night, anxious with swallowing, having swallowing problems. Somewhat paranoid at times. Heart rate was 114. Dr. Montaño has been consulted. EKG completed. REVIEW OF SYSTEMS: Impaired ambulation, in wheelchair. No CV, , pulmonary, eye system symptoms on review, does complain of some constipation. MENTAL STATUS EXAM: Oriented to herself and situation. Speech moderate latency, coherent, often responses monosyllabic. Abstraction fair, computation impaired, language function intact. Mood and affect remain somewhat withdrawn. She is somewhat obsessive, repetitive, ruminative. LABORATORY DATA: Reviewed. IMPRESSION: Major depressive disorder with psychotic features; anxiety disorder, unspecified; obsessive-compulsive disorder. PLAN: Continue psychotropics from initial note. Increase the Luvox gradually. Maintain melatonin, Abilify, trazodone along with Zyprexa. MAN Kory JAMES MD DR: ABDELRAHMAN/tree JOB#: [id number] / [id number]
[2018-10-24] MEDS: LEVOTHYROXINE 137 MCG TABLET PO SCH (06:06)
[2018-10-24 06:39] VITALS: BP 114/74
[2018-10-24] MEDS: OMEGA-3 FATTY ACIDS/FISH OIL 1,000 MG CAPSULE. PO SCH (08:44)
[2018-10-24] MEDS: SIMVASTATIN 20 MG TABLET PO SCH (08:44)
[2018-10-24] MEDS: EZETIMIBE 10 MG TABLET PO SCH (08:44)
[2018-10-24] MEDS: ARIPiprazole 5 MG TABLET PO SCH (08:44)
[2018-10-24] MEDS: AMANTADINE HCL 100 MG CAPSULE PO SCH (08:44)
[2018-10-24] MEDS: CALCIUM CARB/VIT D3 500/200 TABLET PO SCH (08:44)
[2018-10-24] MEDS: LACTOBACILLUS RHAMNOSUS GG 1 CAPSULE. PO SCH ×2 (08:44→19:23)
[2018-10-24] MEDS: CEFDINIR 300 MG CAPSULE PO SCH ×2 (08:44→17:53)
[2018-10-24] MEDS: DOCUSATE SODIUM 100 MG CAPSULE PO SCH ×2 (08:44→19:24)
[2018-10-24] MEDS: POLYETHYLENE GLYCOL 3350 17 GM PACKET. PO SCH (08:45)
[2018-10-24] MEDS: NINTEDANIB ESYLATE 150 MG PO SCH ×2 (08:45→19:29)
[2018-10-24 16:16] VITALS: BP 119/73
[2018-10-24] MEDS ORDERED: SODIUM PHOSPHATES 19/7GM 133 ML ENEMA. PR ONE (17:00)
[2018-10-24] MEDS: traZODone 100 MG TABLET. PO SCH (19:23)
[2018-10-24] MEDS: MELATONIN 3 MG TABLET PO SCH (19:24)
--- NOTE | 2018-10-24 22:48 | PDOC ---
Exam Note: Aleksandar Note: Please also refer to the separate dictated note~for this date of service dictated separately.~Patient seen individually. Discussed the patient with Nursing staff reviewed the chart.~Reviewed interim history and current functioning. Reviewed vital signs,~Labs/ Radiology~and current medications noted below. Continue current treatment with the changes noted in the dictated addendum note Assessment: Vital Signs: Vital Signs Date Time Temp Pulse Resp B/P (MAP) Pulse Ox O2 Delivery O2 Flow Rate FiO2 10/24/18 16:16 98.4 106 18 119/73 (88) 99 Room Air I&O Intake and Output 10/24/18 07:01 Intake Total 920 ml Balance 920 ml Intake Oral 920 ml # Voids 2 # Bowel Movements 1 Current Medications: Meds: Current Medications Albuterol Sulfate (Ventolin) 2.5 mg PRN Q4HRS PRN NEB SHORTNESS OF BREATH; Start 10/18/18 at 22:45 Albuterol Sulfate (Ventolin) 2.5 mg PRN Q4HRS NEB ; Start 10/18/18 at 23:30; Status UNV Levothyroxine Sodium (Synthroid) 137 mcg DAILY06 PO Last administered on at 06:06; Start 10/19/18 at 06:00 Olanzapine (ZyPREXA ZYDIS) 5 mg HS PO Last administered on 10/24/18at 19:24; Start 10/19/18 at 21:00 Alendronate Sodium (Fosamax) 70 mg WEEKLY@0600 PO ; Start 10/25/18 at 06:00 Amantadine HCl (Symmetrel) 100 mg DAILY PO Last administered on 10/24/18at 08:44 ; Start 10/19/18 at 09:00 Aripiprazole (Abilify) 5 mg DAILY PO Last administered on 10/24/18at 08:44; Start 10/19/18 at 09:00 Calcium/Vitamin D (Oscal D 500mg/ 200uts) 1 tab DAILY PO Last administered on at 08:44; Start 10/19/18 at 08:00 Duloxetine HCl (Cymbalta) 60 mg DAILY PO Last administered on 10/20/18at 09:38; Start 10/19/18 at 09:00; Stop 10/20/18 at 17:46; Status DC EZETIMIBE (Zetia) 10 mg DAILY PO Last administered on 10/24/18 08:44; Start at 09:00 Melatonin 3 mg QHS PO Last administered on 10/24/18 19:24; Start 10/19/18 at 21:00 Non-Formulary Medication (Nintedanib Esylate (Ofev)) 150 mg BID PO ; Start 10/19 at 09:00; Status UNV Fish Oil (Fish Oil) 1,000 mg DAILY PO Last administered on 10/24/18 08:44; Start 10/19/18 at 09:00 Acetaminophen (Tylenol) 650 mg PRN Q6HRS PRN PO PAIN / TEMP; Start 10/19/18 at 00:00 Multi-Ingredient Ointment (Analgesic [place]) 1 nabil PRN QID PRN TP MUSCLE PAIN; Start 10/19/18 at 00:00 Al Hydroxide/Mg Hydroxide (Mylanta Plus Xs) 15 ml PRN AFTMEALHC PRN PO DYSPEPSIA; Start 10/19/18 at 00:00 Magnesium Hydroxide (Milk Of Magnesia) 2,400 mg PRN QHS PRN PO CONSTIPATION Last administered on 10/22/18 13:59; Start 10/19/18 at 00:00 Trazodone HCl (Desyrel) 100 mg HS PO Last administered on 10/24/18 19:23; Start 10/19/18 at 21:00 Simvastatin (Zocor) 20 mg DAILY PO Last administered on 10/24/18 08:44; Start 10/19/18 at 09:00 Fluvoxamine Maleate (Luvox) 25 mg QHS PO Last administered on 10/22/18 20:54; Start 10/20/18 at 21:00; Stop 10/22/18 at 23:00; Status DC Fluvoxamine Maleate (Luvox) 50 mg QHS PO Last administered on 10/24/18 19:20; Start 10/23/18 at 21:00 Cefdinir (Omnicef) 300 mg BIDWMEALS PO Last administered on 10/24/18 17:53; Start 10/22/18 at 19:00 Lactobacillus Rhamnosus (Culturelle) 1 cap BID PO Last administered on 1/29/ 19at 19:23; Start 10/22/18 at 21:00; Stop 11/05/18 at 20:59 Docusate Sodium (Colace) 100 mg BID PO Last administered on 10/24/18at 19:24; Start 10/23/18 at 21:00 Polyethylene Glycol (miraLAX) 17 gm DAILY PO Last administered on 10/24/18at 08: 45; Start 10/24/18 at 09:00 Sodium Biphosphate/ Sodium Phosphate ([place] Adult) 133 ml 1X ONCE MD Last administered on 10/24/18at 17:53; Start 10/24/18 at 17:00; Stop 10/24/18 at 17:01 ; Status DC Active Scripts Active Reported Trazodone Hcl 100 Mg Tablet 100 Mg PO HS Ofev (Nintedanib Esylate) 150 Mg Capsule 150 Mg PO BID Melatonin 3 Mg Tablet 5 Mg PO HS Levothyroxine Sodium 137 Mcg Tablet 137 Mcg PO DAILYAC Fish Oil 1,000 mg Softgel ([place]-3/Dha/Epa/Fish Oil) 1,000 Mg Capsule 1,000 Mg PO DAILY Cymbalta (Duloxetine Hcl) 60 Mg Capsule.dr 60 Mg PO DAILY Calcium 500 + Vit D 400 Tablet (Calcium Carbonate/Vitamin D3) 1 Each Tablet 1 Each PO DAILY Vytorin 10-20 Mg Tablet (Ezetimibe/Simvastatin) 1 Each Tablet 1 Each PO DAILY Abilify (Aripiprazole) 5 Mg Tablet 5 Mg PO DAILY Alendronate Sodium 70 Mg Tablet 70 Mg PO WEEKLY Zyprexa Zydis (Olanzapine) 5 Mg Tab.rapdis 5 Mg PO HS Amantadine (Amantadine Hcl) 100 Mg Tablet 100 Mg PO DAILY Albuterol Sulfate Neb Soln (Albuterol Sulfate) 2.5 Mg/3 Ml Vial.neb 1 Vial NEB PRN Q4HRS I have reviewed the current psychotropics carefully including drug interactions. Risk benefit ratio favors no change other than as noted in my dictated progress note. EVA JAMES MD Oct 24, 2018 22:48
--- NOTE | 2018-10-25 02:15 | PN ---
DATE: 10/23/2018 PSYCHIATRIC PROGRESS NOTE This late entry 10/23/2018 covers elements, not covered in my initial note. SUBJECTIVE: I met with the patient in the evening. The patient slept 6-1/2 hours previous night. She has been preoccupied with constipation, Dr. Saeed is addressing this. REVIEW OF SYSTEMS: Otherwise, impaired ambulation, in wheelchair. No CV, , eye, ENT system symptoms on review. MENTAL STATUS EXAM: Oriented to herself and situation. Speech has some latency, coherent. Abstraction fair, computation impaired, language function intact, attention span short. Mood and affect remains somewhat withdrawn. LABORATORY DATA: Reviewed. IMPRESSION: Major depressive disorder with psychotic features, in partial remission; cognitive disorder, unspecified; urinary tract infection. PLAN: Continue psychotropics from initial note. Treat the UTI. Rest will be adjusted post-resolution of UTI. MAN Kory JAMES MD DR: ABDELRAHMAN/tree JOB#: [id number] / [id number]
[2018-10-25] MEDS ORDERED: ALENDRONATE SODIUM 35 MG TABLET PO SCH (06:00)
[2018-10-25 06:04] VITALS: BP 143/76
[2018-10-25] MEDS: LEVOTHYROXINE 137 MCG TABLET PO SCH (06:26)
[2018-10-25 09:36] LABS: BASO # 0.1 x10^3/uL (0.0-0.2); BASO % 1 % (0-3); EOS # 0.2 x10^3/uL (0.0-0.7); EOS % 2 % (0-3); HEMATOCRIT 36.8 % (36.0-47.0); HEMOGLOBIN 12.1 g/dL (12.0-15.5); LYMPH # 2.4 x10^3/uL (1.0-4.8); LYMPH % 23 % (24-48); MEAN CORPUSCULAR HEMOGLOBIN 33 pg (25-35); MEAN CORPUSCULAR HGB CONC 33 g/dL (31-37); MEAN CORPUSCULAR VOLUME 100 fL (79-100); MONO # 0.6 x10^3/uL (0.0-1.1); MONO % 6 % (0-9); NEUT % 68 % (31-73); PLATELET COUNT 366 x10^3/uL (140-400); RED BLOOD COUNT 3.67 x10^6/uL (3.50-5.40); RED CELL DISTRIBUTION WIDTH 15.1 % (11.5-14.5); WHITE BLOOD COUNT 10.3 x10^3/uL (4.0-11.0)
[2018-10-25 09:54] LABS: ALBUMIN 3.3 g/dL (3.4-5.0); ALBUMIN/GLOBULIN RATIO 0.8 (1.0-1.7); CALCIUM 9.3 mg/dL (8.5-10.1); GFR 55.8; POTASSIUM 4.1 mmol/L (3.5-5.1); TOTAL BILIRUBIN 0.4 mg/dL (0.2-1.0); TOTAL PROTEIN 7.2 g/dL (6.4-8.2)
[2018-10-25] MEDS: NINTEDANIB ESYLATE 150 MG PO SCH ×2 (09:59→21:00)
[2018-10-25] MEDS: CEFDINIR 300 MG CAPSULE PO SCH ×2 (09:59→17:30)
[2018-10-25] MEDS: SIMVASTATIN 20 MG TABLET PO SCH (10:00)
[2018-10-25] MEDS: POLYETHYLENE GLYCOL 3350 17 GM PACKET. PO SCH (10:00)
[2018-10-25] MEDS: DOCUSATE SODIUM 100 MG CAPSULE PO SCH ×2 (10:00→21:00)
[2018-10-25] MEDS: CALCIUM CARB/VIT D3 500/200 TABLET PO SCH (10:00)
[2018-10-25] MEDS: LACTOBACILLUS RHAMNOSUS GG 1 CAPSULE. PO SCH ×2 (10:00→21:01)
[2018-10-25] MEDS: OMEGA-3 FATTY ACIDS/FISH OIL 1,000 MG CAPSULE. PO SCH (10:00)
[2018-10-25] MEDS: ARIPiprazole 5 MG TABLET PO SCH (10:00)
[2018-10-25] MEDS: EZETIMIBE 10 MG TABLET PO SCH (10:00)
[2018-10-25] MEDS: AMANTADINE HCL 100 MG CAPSULE PO SCH (10:01)
[2018-10-25 16:37] VITALS: BP 126/82
[2018-10-25] MEDS: traZODone 100 MG TABLET. PO SCH (21:01)
[2018-10-25] MEDS: MELATONIN 3 MG TABLET PO SCH (21:01)
--- NOTE | 2018-10-25 22:45 | PDOC ---
Exam Note: Aleksandar Note: Please also refer to the separate dictated note~for this date of service dictated separately.~Patient seen individually. Discussed the patient with Nursing staff reviewed the chart.~Reviewed interim history and current functioning. Reviewed vital signs,~Labs/ Radiology~and current medications noted below. Continue current treatment with the changes noted in the dictated addendum note Assessment: Vital Signs: Vital Signs Date Time Temp Pulse Resp B/P (MAP) Pulse Ox O2 Delivery O2 Flow Rate FiO2 10/25/18 16:37 97.8 96 20 126/82 (97) 99 10/24/18 16:16 Room Air I&O Intake and Output 10/25/18 07:01 Intake Total 960 ml Balance 960 ml Intake Oral 960 ml # Voids 1 # Bowel Movements 1 Labs: Laboratory Tests Test 10/25/18 09:18 White Blood Count 10.3 x10^3/uL (4.0-11.0) Red Blood Count 3.67 x10^6/uL (3.50-5.40) Hemoglobin 12.1 g/dL (12.0-15.5) Hematocrit 36.8 % (36.0-47.0) Mean Corpuscular Volume 100 fL (79-100) Mean Corpuscular Hemoglobin 33 pg (25-35) Mean Corpuscular Hemoglobin Concent 33 g/dL (31-37) Red Cell Distribution Width 15.1 % (11.5-14.5) H Platelet Count 366 x10^3/uL (140-400) Neutrophils (%) (Auto) 68 % (31-73) Lymphocytes (%) (Auto) 23 % (24-48) L Monocytes (%) (Auto) 6 % (0-9) Eosinophils (%) (Auto) 2 % (0-3) Basophils (%) (Auto) 1 % (0-3) Neutrophils # (Auto) 7.0 x10^3uL (1.8-7.7) Lymphocytes # (Auto) 2.4 x10^3/uL (1.0-4.8) Monocytes # (Auto) 0.6 x10^3/uL (0.0-1.1) Eosinophils # (Auto) 0.2 x10^3/uL (0.0-0.7) Basophils # (Auto) 0.1 x10^3/uL (0.0-0.2) Sodium Level 142 mmol/L (136-145) Potassium Level 4.1 mmol/L (3.5-5.1) Chloride Level 100 mmol/L (98-107) Carbon Dioxide Level 32 mmol/L (21-32) Anion Gap 10 (6-14) Blood Urea Nitrogen 17 mg/dL (7-20) Creatinine 1.0 mg/dL (0.6-1.0) Estimated GFR (Cockcroft-Gault) 55.8 BUN/Creatinine Ratio 17 (6-20) Glucose Level 135 mg/dL (70-99) H Calcium Level 9.3 mg/dL (8.5-10.1) Total Bilirubin 0.4 mg/dL (0.2-1.0) Aspartate Amino Transferase (AST) 32 U/L (15-37) Alanine Aminotransferase (ALT) 32 U/L (14-59) Alkaline Phosphatase 58 U/L (46-116) Total Protein 7.2 g/dL (6.4-8.2) Albumin 3.3 g/dL (3.4-5.0) L Albumin/Globulin Ratio 0.8 (1.0-1.7) L Current Medications: Meds: Current Medications Albuterol Sulfate (Ventolin) 2.5 mg PRN Q4HRS PRN NEB SHORTNESS OF BREATH; Start 10/18/18 at 22:45 Albuterol Sulfate (Ventolin) 2.5 mg PRN Q4HRS NEB ; Start 10/18/18 at 23:30; Status UNV Levothyroxine Sodium (Synthroid) 137 mcg DAILY06 PO Last administered on at 06:26; Start 10/19/18 at 06:00 Olanzapine (ZyPREXA ZYDIS) 5 mg HS PO Last administered on 10/25/18at 21:01; Start 10/19/18 at 21:00 Alendronate Sodium (Fosamax) 70 mg WEEKLY@0600 PO Last administered on at 06:28; Start 10/25/18 at 06:00 Amantadine HCl (Symmetrel) 100 mg DAILY PO Last administered on 10/25/18at 10:01 ; Start 10/19/18 at 09:00 Aripiprazole (Abilify) 5 mg DAILY PO Last administered on 10/25/18 10:00; Start 10/19/18 at 09:00 Calcium/Vitamin D (Oscal D 500mg/ 200uts) 1 tab DAILY PO Last administered on 10:00; Start 10/19/18 at 08:00 Duloxetine HCl (Cymbalta) 60 mg DAILY PO Last administered on 10/20/18 09:38; Start 10/19/18 at 09:00; Stop 10/20/18 at 17:46; Status DC EZETIMIBE (Zetia) 10 mg DAILY PO Last administered on 10/25/18 10:00; Start at 09:00 Melatonin 3 mg QHS PO Last administered on 10/25/18 21:01; Start 10/19/18 at 21:00 Non-Formulary Medication (Nintedanib Esylate (Ofev)) 150 mg BID PO ; Start 10/19 at 09:00; Status UNV Fish Oil (Fish Oil) 1,000 mg DAILY PO Last administered on 10/25/18 10:00; Start 10/19/18 at 09:00 Acetaminophen (Tylenol) 650 mg PRN Q6HRS PRN PO PAIN / TEMP; Start 10/19/18 at 00:00 Multi-Ingredient Ointment (Analgesic Max) 1 nabil PRN QID PRN TP MUSCLE PAIN; Start 10/19/18 at 00:00 Al Hydroxide/Mg Hydroxide (Mylanta Plus Xs) 15 ml PRN AFTMEALHC PRN PO DYSPEPSIA; Start 10/19/18 at 00:00 Magnesium Hydroxide (Milk Of Magnesia) 2,400 mg PRN QHS PRN PO CONSTIPATION Last administered on 10/22/18 13:59; Start 10/19/18 at 00:00 Trazodone HCl (Desyrel) 100 mg HS PO Last administered on 10/25/18 21:01; Start 10/19/18 at 21:00 Simvastatin (Zocor) 20 mg DAILY PO Last administered on 10/25/18 10:00; Start 10/19/18 at 09:00 Fluvoxamine Maleate (Luvox) 25 mg QHS PO Last administered on 10/22/18at 20:54; Start 10/20/18 at 21:00; Stop 10/22/18 at 23:00; Status DC Fluvoxamine Maleate (Luvox) 50 mg QHS PO Last administered on 10/25/18at 21:01; Start 10/23/18 at 21:00 Cefdinir (Omnicef) 300 mg BIDWMEALS PO Last administered on 10/25/18at 17:30; Start 10/22/18 at 19:00 Lactobacillus Rhamnosus (Culturelle) 1 cap BID PO Last administered on at 21:01; Start 10/22/18 at 21:00; Stop 11/05/18 at 20:59 Docusate Sodium (Colace) 100 mg BID PO Last administered on 10/25/18at 21:00; Start 10/23/18 at 21:00 Polyethylene Glycol (miraLAX) 17 gm DAILY PO Last administered on 10/25/18at 10: 00; Start 10/24/18 at 09:00 Sodium Biphosphate/ Sodium Phosphate (Fleet Adult) 133 ml 1X ONCE [place] Last administered on 10/24/18at 17:53; Start 10/24/18 at 17:00; Stop 10/24/18 at 17:01 ; Status DC Active Scripts Active Reported Trazodone Hcl 100 Mg Tablet 100 Mg PO HS Ofev (Nintedanib Esylate) 150 Mg Capsule 150 Mg PO BID Melatonin 3 Mg Tablet 5 Mg PO HS Levothyroxine Sodium 137 Mcg Tablet 137 Mcg PO DAILYAC Fish Oil 1,000 mg Softgel ([place]-3/Dha/Epa/Fish Oil) 1,000 Mg Capsule 1,000 Mg PO DAILY Cymbalta (Duloxetine Hcl) 60 Mg Capsule.dr 60 Mg PO DAILY Calcium 500 + Vit D 400 Tablet (Calcium Carbonate/Vitamin D3) 1 Each Tablet 1 Each PO DAILY Vytorin 10-20 Mg Tablet (Ezetimibe/Simvastatin) 1 Each Tablet 1 Each PO DAILY Abilify (Aripiprazole) 5 Mg Tablet 5 Mg PO DAILY Alendronate Sodium 70 Mg Tablet 70 Mg PO WEEKLY Zyprexa Zydis (Olanzapine) 5 Mg Tab.rapdis 5 Mg PO HS Amantadine (Amantadine Hcl) 100 Mg Tablet 100 Mg PO DAILY Albuterol Sulfate Neb Soln (Albuterol Sulfate) 2.5 Mg/3 Ml Vial.neb 1 Vial NEB PRN Q4HRS I have reviewed the current psychotropics carefully including drug interactions. Risk benefit ratio favors no change other than as noted in my dictated progress note. EVA JAMES MD Oct 25, 2018 22:45
--- NOTE | 2018-10-26 03:23 | PN ---
DATE: 10/24/2018 This late entry for 10/24/2018 covers elements not covered in my initial note. SUBJECTIVE: I met with the patient in the evening. The patient slept 5-3/4 hours previous night. She is quite obsessive regarding swallowing. Meds have to be given crushed. She has been constipated, received an enema in the evening. REVIEW OF SYSTEMS: Ambulation impaired, in wheelchair. No CV, , pulmonary, eye system symptoms on review. MENTAL STATUS EXAM: Oriented to herself and situation. Speech is coherent, has some latency. Abstraction fair, computation impaired, language function intact, attention span short. Mood and affect is withdrawn. LABORATORY DATA: Reviewed. IMPRESSION: Major depressive disorder, recurrent with psychotic features; anxiety disorder, unspecified. Rest unchanged. PLAN: No change from initial note. Luvox has been increased. Maintain melatonin, trazodone, Abilify and Zyprexa 5 mg at bedtime. MAN Kory JAMES MD DR: ABDELRAHMAN/tree JOB#: [id number] / [id number]
[2018-10-26] MEDS: LEVOTHYROXINE 137 MCG TABLET PO SCH ×2 (06:25→09:05)
[2018-10-26 06:58] VITALS: BP 119/76
[2018-10-26] MEDS: ARIPiprazole 5 MG TABLET PO SCH (09:04)
[2018-10-26] MEDS: POLYETHYLENE GLYCOL 3350 17 GM PACKET. PO SCH (09:05)
[2018-10-26] MEDS: EZETIMIBE 10 MG TABLET PO SCH (09:05)
[2018-10-26] MEDS: CALCIUM CARB/VIT D3 500/200 TABLET PO SCH (09:05)
[2018-10-26] MEDS: SIMVASTATIN 20 MG TABLET PO SCH (09:05)
[2018-10-26] MEDS: DOCUSATE SODIUM 100 MG CAPSULE PO SCH ×2 (09:05→20:16)
[2018-10-26] MEDS: LACTOBACILLUS RHAMNOSUS GG 1 CAPSULE. PO SCH ×2 (09:05→20:16)
[2018-10-26] MEDS: OMEGA-3 FATTY ACIDS/FISH OIL 1,000 MG CAPSULE. PO SCH (09:05)
[2018-10-26] MEDS: CEFDINIR 300 MG CAPSULE PO SCH ×2 (09:06→17:24)
[2018-10-26] MEDS: NINTEDANIB ESYLATE 150 MG PO SCH ×2 (09:07→20:17)
[2018-10-26] MEDS: AMANTADINE HCL 100 MG CAPSULE PO SCH (09:07)
[2018-10-26 16:24] VITALS: BP 122/78
[2018-10-26] MEDS: traZODone 100 MG TABLET. PO SCH (20:16)
[2018-10-26] MEDS: MELATONIN 3 MG TABLET PO SCH (20:16)
--- NOTE | 2018-10-26 22:41 | PDOC ---
Exam Note: Aleksandar Note: Please also refer to the separate dictated note~for this date of service dictated separately.~Patient seen individually. Discussed the patient with Nursing staff reviewed the chart.~Reviewed interim history and current functioning. Reviewed vital signs,~Labs/ Radiology~and current medications noted below. Continue current treatment with the changes noted in the dictated addendum note Assessment: Vital Signs: Vital Signs Date Time Temp Pulse Resp B/P (MAP) Pulse Ox O2 Delivery O2 Flow Rate FiO2 10/26/18 16:24 98.1 99 18 122/78 (93) 98 10/24/18 16:16 Room Air I&O Intake and Output 10/26/18 07:01 Intake Total 840 ml Balance 840 ml Intake Oral 840 ml # Voids 1 # Bowel Movements 1 Current Medications: Meds: Current Medications Albuterol Sulfate (Ventolin) 2.5 mg PRN Q4HRS PRN NEB SHORTNESS OF BREATH; Start 10/18/18 at 22:45 Albuterol Sulfate (Ventolin) 2.5 mg PRN Q4HRS NEB ; Start 10/18/18 at 23:30; Status UNV Levothyroxine Sodium (Synthroid) 137 mcg DAILY06 PO Last administered on at 09:05; Start 10/19/18 at 06:00 Olanzapine (ZyPREXA ZYDIS) 5 mg HS PO Last administered on 10/26/18at 20:16; Start 10/19/18 at 21:00 Alendronate Sodium (Fosamax) 70 mg WEEKLY@0600 PO Last administered on at 06:28; Start 10/25/18 at 06:00 Amantadine HCl (Symmetrel) 100 mg DAILY PO Last administered on 10/26/18at 09:07 ; Start 10/19/18 at 09:00 Aripiprazole (Abilify) 5 mg DAILY PO Last administered on 10/26/18at 09:04; Start 10/19/18 at 09:00 Calcium/Vitamin D (Oscal D 500mg/ 200uts) 1 tab DAILY PO Last administered on at 09:05; Start 10/19/18 at 08:00 Duloxetine HCl (Cymbalta) 60 mg DAILY PO Last administered on 10/20/18at 09:38; Start 10/19/18 at 09:00; Stop 10/20/18 at 17:46; Status DC EZETIMIBE (Zetia) 10 mg DAILY PO Last administered on 10/26/18 09:05; Start at 09:00 Melatonin 3 mg QHS PO Last administered on 10/26/18 20:16; Start 10/19/18 at 21:00 Non-Formulary Medication (Nintedanib Esylate (Ofev)) 150 mg BID PO ; Start 10/19 at 09:00; Status UNV Fish Oil (Fish Oil) 1,000 mg DAILY PO Last administered on 10/26/18 09:05; Start 10/19/18 at 09:00 Acetaminophen (Tylenol) 650 mg PRN Q6HRS PRN PO PAIN / TEMP Last administered on 10/26/18 22:13; Start 10/19/18 at 00:00 Multi-Ingredient Ointment (Analgesic Diamond) 1 nabil PRN QID PRN TP MUSCLE PAIN; Start 10/19/18 at 00:00 Al Hydroxide/Mg Hydroxide (Mylanta Plus Xs) 15 ml PRN AFTMEALHC PRN PO DYSPEPSIA; Start 10/19/18 at 00:00 Magnesium Hydroxide (Milk Of Magnesia) 2,400 mg PRN QHS PRN PO CONSTIPATION Last administered on 10/22/18 13:59; Start 10/19/18 at 00:00 Trazodone HCl (Desyrel) 100 mg HS PO Last administered on 10/26/18 20:16; Start 10/19/18 at 21:00 Simvastatin (Zocor) 20 mg DAILY PO Last administered on 10/26/18 09:05; Start 10/19/18 at 09:00 Fluvoxamine Maleate (Luvox) 25 mg QHS PO Last administered on 10/22/18 20:54; Start 10/20/18 at 21:00; Stop 10/22/18 at 23:00; Status DC Fluvoxamine Maleate (Luvox) 50 mg QHS PO Last administered on 10/26/18 20:17; Start 10/23/18 at 21:00 Cefdinir (Omnicef) 300 mg BIDWMEALS PO Last administered on 10/26/18 17:24; Start 10/22/18 at 19:00; Stop 10/29/18 at 09:00 Lactobacillus Rhamnosus (Culturelle) 1 cap BID PO Last administered on at 20:16; Start 10/22/18 at 21:00; Stop 11/05/18 at 20:59 Docusate Sodium (Colace) 100 mg BID PO Last administered on 10/26/18at 20:16; Start 10/23/18 at 21:00 Polyethylene Glycol (miraLAX) 17 gm DAILY PO Last administered on 10/26/18at 09: 05; Start 10/24/18 at 09:00 Sodium Biphosphate/ Sodium Phosphate (Fleet Adult) 133 ml 1X ONCE [place] Last administered on 10/24/18at 17:53; Start 10/24/18 at 17:00; Stop 10/24/18 at 17:01 ; Status DC Active Scripts Active Reported Trazodone Hcl 100 Mg Tablet 100 Mg PO HS Ofev (Nintedanib Esylate) 150 Mg Capsule 150 Mg PO BID Melatonin 3 Mg Tablet 5 Mg PO HS Levothyroxine Sodium 137 Mcg Tablet 137 Mcg PO DAILYAC Fish Oil 1,000 mg Softgel ([place]-3/Dha/Epa/Fish Oil) 1,000 Mg Capsule 1,000 Mg PO DAILY Cymbalta (Duloxetine Hcl) 60 Mg Capsule.dr 60 Mg PO DAILY Calcium 500 + Vit D 400 Tablet (Calcium Carbonate/Vitamin D3) 1 Each Tablet 1 Each PO DAILY Vytorin 10-20 Mg Tablet (Ezetimibe/Simvastatin) 1 Each Tablet 1 Each PO DAILY Abilify (Aripiprazole) 5 Mg Tablet 5 Mg PO DAILY Alendronate Sodium 70 Mg Tablet 70 Mg PO WEEKLY Zyprexa Zydis (Olanzapine) 5 Mg Tab.rapdis 5 Mg PO HS Amantadine (Amantadine Hcl) 100 Mg Tablet 100 Mg PO DAILY Albuterol Sulfate Neb Soln (Albuterol Sulfate) 2.5 Mg/3 Ml Vial.neb 1 Vial NEB PRN Q4HRS I have reviewed the current psychotropics carefully including drug interactions. Risk benefit ratio favors no change other than as noted in my dictated progress note. EVA JAMES MD Oct 26, 2018 22:41
[2018-10-27] MEDS ORDERED: ACET325T9 PO (01:43)
[2018-10-27] MEDS ORDERED: DOCU100C28 PO (01:44)
[2018-10-27] MEDS ORDERED: CEFD300C PO (01:44)
[2018-10-27] MEDS ORDERED: MAGN2400 PO (01:45)
[2018-10-27] MEDS ORDERED: MAG355OR11 PO (01:45)
[2018-10-27] MEDS ORDERED: LACT1CAP21 PO (01:45)
[2018-10-27] MEDS ORDERED: POLY255P11 PO (01:46)
[2018-10-27] MEDS ORDERED: METH29OI TP (01:46)
[2018-10-27] MEDS ORDERED: FLUV50TA2 PO (01:47)
[2018-10-27] MEDS ORDERED: LEVOTHYROXINE 137 MCG TABLET PO ONE (06:00)
[2018-10-27 06:32] VITALS: BP 106/66
[2018-10-27] MEDS: EZETIMIBE 10 MG TABLET PO SCH (09:43)
[2018-10-27] MEDS: POLYETHYLENE GLYCOL 3350 17 GM PACKET. PO SCH (09:43)
[2018-10-27] MEDS: DOCUSATE SODIUM 100 MG CAPSULE PO SCH ×2 (09:43→19:45)
[2018-10-27] MEDS: LACTOBACILLUS RHAMNOSUS GG 1 CAPSULE. PO SCH ×2 (09:44→19:45)
[2018-10-27] MEDS: ARIPiprazole 5 MG TABLET PO SCH (09:44)
[2018-10-27] MEDS: SIMVASTATIN 20 MG TABLET PO SCH (09:44)
[2018-10-27] MEDS: OMEGA-3 FATTY ACIDS/FISH OIL 1,000 MG CAPSULE. PO SCH (09:44)
[2018-10-27] MEDS: CALCIUM CARB/VIT D3 500/200 TABLET PO SCH (09:44)
[2018-10-27] MEDS: CEFDINIR 300 MG CAPSULE PO SCH ×2 (09:46→17:41)
[2018-10-27] MEDS: NINTEDANIB ESYLATE 150 MG PO SCH ×2 (09:47→19:45)
[2018-10-27] MEDS: AMANTADINE HCL 100 MG CAPSULE PO SCH (09:47)
[2018-10-27 16:12] VITALS: BP 119/72
[2018-10-27] MEDS: MELATONIN 3 MG TABLET PO SCH (19:45)
[2018-10-27] MEDS: traZODone 100 MG TABLET. PO SCH (19:45)
--- NOTE | 2018-10-27 22:43 | PN ---
DATE: 10/25/2018 PSYCHIATRIC PROGRESS NOTE This late entry 10/25/2018 covers elements not covered in my initial note. SUBJECTIVE: I met with the patient in the evening. The patient slept 5-1/2 hours previous night. She had a good day on 10/25/2017 using the walker to ambulate, still complains of constipation and GI symptoms, but states she is feeling better. REVIEW OF SYSTEMS: Ambulation impaired, in wheelchair. No CV, , pulmonary, eye system symptoms on review other than GI symptoms. MENTAL STATUS EXAM: Oriented to herself and situation. Speech is coherent, has some latency. Abstraction fair, computation impaired, language function intact. Mood and affect somewhat withdrawn. LABORATORY DATA: Reviewed. IMPRESSION: Major depressive disorder with psychotic features; anxiety disorder, unspecified. Rest unchanged. PLAN: No change from initial note. MAN Kory JAMES MD DR: ABDELRAHMAN/tree JOB#: [id number] / [id number]
--- NOTE | 2018-10-27 23:03 | PDOC ---
Exam Note: Aleksandar Note: Please also refer to the separate dictated note~for this date of service dictated separately.~Patient seen individually. Discussed the patient with Nursing staff reviewed the chart.~Reviewed interim history and current functioning. Reviewed vital signs,~Labs/ Radiology~and current medications noted below. Continue current treatment with the changes noted in the dictated addendum note Assessment: Vital Signs: Vital Signs Date Time Temp Pulse Resp B/P (MAP) Pulse Ox O2 Delivery O2 Flow Rate FiO2 10/27/18 16:12 98.2 109 20 119/72 (88) 100 Room Air I&O Intake and Output 10/27/18 07:01 Intake Total 840 ml Balance 840 ml Intake Oral 840 ml Current Medications: Meds: Current Medications Albuterol Sulfate (Ventolin) 2.5 mg PRN Q4HRS PRN NEB SHORTNESS OF BREATH; Start 10/18/18 at 22:45 Albuterol Sulfate (Ventolin) 2.5 mg PRN Q4HRS NEB ; Start 10/18/18 at 23:30; Status UNV Levothyroxine Sodium (Synthroid) 137 mcg DAILY06 PO Last administered on at 09:05; Start 10/19/18 at 06:00 Olanzapine (ZyPREXA ZYDIS) 5 mg HS PO Last administered on 10/27/18at 19:50; Start 10/19/18 at 21:00 Alendronate Sodium (Fosamax) 70 mg WEEKLY@0600 PO Last administered on at 06:28; Start 10/25/18 at 06:00 Amantadine HCl (Symmetrel) 100 mg DAILY PO Last administered on 10/27/18at 09:47 ; Start 10/19/18 at 09:00 Aripiprazole (Abilify) 5 mg DAILY PO Last administered on 10/27/18at 09:44; Start 10/19/18 at 09:00 Calcium/Vitamin D (Oscal D 500mg/ 200uts) 1 tab DAILY PO Last administered on at 09:44; Start 10/19/18 at 08:00 Duloxetine HCl (Cymbalta) 60 mg DAILY PO Last administered on 10/20/18at 09:38; Start 10/19/18 at 09:00; Stop 10/20/18 at 17:46; Status DC EZETIMIBE (Zetia) 10 mg DAILY PO Last administered on 10/27/18 09:43; Start at 09:00 Melatonin 3 mg QHS PO Last administered on 10/27/18 19:45; Start 10/19/18 at 21 :00 Non-Formulary Medication (Nintedanib Esylate (Ofev)) 150 mg BID PO ; Start 10/19 at 09:00; Status UNV Fish Oil (Fish Oil) 1,000 mg DAILY PO Last administered on 10/27/18 09:44; Start 10/19/18 at 09:00 Acetaminophen (Tylenol) 650 mg PRN Q6HRS PRN PO PAIN / TEMP Last administered on 10/26/18 22:13; Start 10/19/18 at 00:00 Multi-Ingredient Ointment (Analgesic [place]) 1 sherrill PRN QID PRN TP MUSCLE PAIN; Start 10/19/18 at 00:00 Al Hydroxide/Mg Hydroxide (Mylanta Plus Xs) 15 ml PRN AFTMEALHC PRN PO DYSPEPSIA; Start 10/19/18 at 00:00 Magnesium Hydroxide (Milk Of Magnesia) 2,400 mg PRN QHS PRN PO CONSTIPATION Last administered on 10/22/18 13:59; Start 10/19/18 at 00:00 Trazodone HCl (Desyrel) 100 mg HS PO Last administered on 10/27/18 19:45; Start 10/19/18 at 21:00 Simvastatin (Zocor) 20 mg DAILY PO Last administered on 10/27/18 09:44; Start 10/19/18 at 09:00 Fluvoxamine Maleate (Luvox) 25 mg QHS PO Last administered on 10/22/18 20:54; Start 10/20/18 at 21:00; Stop 10/22/18 at 23:00; Status DC Fluvoxamine Maleate (Luvox) 50 mg QHS PO Last administered on 10/26/18 20:17; Start 10/23/18 at 21:00; Stop 10/27/18 at 16:56; Status DC Cefdinir (Omnicef) 300 mg BIDWMEALS PO Last administered on 10/27/18 17:41; Start 10/22/18 at 19:00; Stop 10/29/18 at 09:00 Lactobacillus Rhamnosus (Culturelle) 1 cap BID PO Last administered on at 19:45; Start 10/22/18 at 21:00; Stop 11/05/18 at 20:59 Docusate Sodium (Colace) 100 mg BID PO Last administered on 10/27/18at 19:45; Start 10/23/18 at 21:00 Polyethylene Glycol (miraLAX) 17 gm DAILY PO Last administered on 10/27/18at 09: 43; Start 10/24/18 at 09:00 Sodium Biphosphate/ Sodium Phosphate (Fleet Adult) 133 ml 1X ONCE [place] Last administered on 10/24/18at 17:53; Start 10/24/18 at 17:00; Stop 10/24/18 at 17:01 ; Status DC Levothyroxine Sodium (Synthroid) 137 mcg 1X ONCE PO Last administered on at 05:59; Start 10/27/18 at 06:00; Stop 10/27/18 at 06:01; Status DC Fluvoxamine Maleate (Luvox) 75 mg HS PO Last administered on 10/27/18at 19:50; Start 10/27/18 at 21:00 Active Scripts Active Reported Fluvoxamine Maleate 50 Mg Tablet 50 Mg PO HS Polyethylene Glycol 3350 255 Gm Powder 17 Gm PO DAILY Analgesic [place]audette (Methyl Salicylate/Menthol) 28 Gm Oint...g. 1 Sherrill TP PRN QID PRN Milk Of Magnesia (Magnesium Hydroxide) 2,400 Mg/10 Ml Oral.susp 2,400 Mg PO PRN QHS PRN Maalox Advanced Suspension (Mag Hydrox/Aluminum Hyd/Simeth) 355 Ml Oral.susp 15 Ml PO PRN AFTMEALHC PRN Culturelle (Lactobacillus Rhamnosus Gg) 1 Each Capsule 1 Cap PO BID Docusate Sodium 100 Mg Capsule 100 Mg PO BID Cefdinir 300 Mg Capsule 300 Mg PO BIDWMEALS Tylenol (Acetaminophen) 325 Mg Tablet 650 Mg PO PRN Q6HRS PRN Trazodone Hcl 100 Mg Tablet 100 Mg PO HS Ofev (Nintedanib Esylate) 150 Mg Capsule 150 Mg PO BID Melatonin 3 Mg Tablet 5 Mg PO HS Levothyroxine Sodium 137 Mcg Tablet 137 Mcg PO DAILYAC Fish Oil 1,000 mg Softgel ([place]-3/Dha/Epa/Fish Oil) 1,000 Mg Capsule 1,000 Mg PO DAILY Cymbalta (Duloxetine Hcl) 60 Mg Capsule.dr 60 Mg PO DAILY Calcium 500 + Vit D 400 Tablet (Calcium Carbonate/Vitamin D3) 1 Each Tablet 1 Each PO DAILY Vytorin 10-20 Mg Tablet (Ezetimibe/Simvastatin) 1 Each Tablet 1 Each PO DAILY Abilify (Aripiprazole) 5 Mg Tablet 5 Mg PO DAILY Alendronate Sodium 70 Mg Tablet 70 Mg PO WEEKLY Zyprexa Zydis (Olanzapine) 5 Mg Tab.rapdis 5 Mg PO HS Amantadine (Amantadine Hcl) 100 Mg Tablet 100 Mg PO DAILY Albuterol Sulfate Neb Soln (Albuterol Sulfate) 2.5 Mg/3 Ml Vial.neb 1 Vial NEB PRN Q4HRS I have reviewed the current psychotropics carefully including drug interactions. Risk benefit ratio favors no change other than as noted in my dictated progress note. EVA JAMES MD Oct 27, 2018 23:03
--- NOTE | 2018-10-27 23:32 | PN ---
DATE: 10/26/2018 PSYCHIATRIC PROGRESS NOTE This late entry 10/26/2018 covers elements not covered in my initial note. SUBJECTIVE: We met with the patient in the evening. The patient was also staffed at treatment team meeting with the entire team and , Bentley, attended the conference. We reviewed the patient's history at length. She remains somewhat paranoid, believes other patients are harassing her. She is attending physical therapy. Obsessive, anxious. Appetite is 50%. Slept 6 hours. Does have a UTI, being treated per Dr. Saeed. REVIEW OF SYSTEMS: Constipation is better. Ambulation impaired, in wheelchair. No CV, , pulmonary system symptoms on review. MENTAL STATUS EXAM: Oriented to herself and situation. Speech has some latency, coherent. Abstraction fair, computation impaired, language function intact. Mood and affect showing improvement. LABORATORY DATA: Reviewed. IMPRESSION: Unchanged from initial note, major depressive disorder with psychotic features. PLAN: No change from initial note. EVA JAMES MD DR: ABDELRAHMAN/tree JOB#: [id number] / [id number]
[2018-10-28] MEDS: LEVOTHYROXINE 137 MCG TABLET PO SCH (06:12)
[2018-10-28 06:26] VITALS: BP 110/71
[2018-10-28] MEDS: LACTOBACILLUS RHAMNOSUS GG 1 CAPSULE. PO SCH ×2 (09:32→19:19)
[2018-10-28] MEDS: ARIPiprazole 5 MG TABLET PO SCH (09:32)
[2018-10-28] MEDS: DOCUSATE SODIUM 100 MG CAPSULE PO SCH ×2 (09:32→19:20)
[2018-10-28] MEDS: POLYETHYLENE GLYCOL 3350 17 GM PACKET. PO SCH (09:32)
[2018-10-28] MEDS: NINTEDANIB ESYLATE 150 MG PO SCH ×2 (09:32→19:19)
[2018-10-28] MEDS: CEFDINIR 300 MG CAPSULE PO SCH ×2 (09:32→16:51)
[2018-10-28] MEDS: OMEGA-3 FATTY ACIDS/FISH OIL 1,000 MG CAPSULE. PO SCH (09:32)
[2018-10-28] MEDS: AMANTADINE HCL 100 MG CAPSULE PO SCH (09:33)
[2018-10-28] MEDS: CALCIUM CARB/VIT D3 500/200 TABLET PO SCH (09:33)
[2018-10-28] MEDS: SIMVASTATIN 20 MG TABLET PO SCH (09:33)
[2018-10-28] MEDS: EZETIMIBE 10 MG TABLET PO SCH (09:33)
[2018-10-28 16:16] VITALS: BP 103/64
--- NOTE | 2018-10-28 17:34 | RAD ---
Bilateral lower extremity venous Doppler dated 10/28/2018. No comparison available. Clinical data indication: Edema. FINDINGS: Grayscale, color-flow and spectral waveform analysis performed to include the deep venous system of both lower extremity. Normal compressibility, phasicity and augmentation of flow throughout. No filling defects are seen. IMPRESSION: No evidence of lower extremity deep vein thrombosis. Electronically signed by: Romario Harley MD (10/28/2018 5:29 PM) [facility] [id number]
[2018-10-28] MEDS: traZODone 100 MG TABLET. PO SCH (19:19)
[2018-10-28] MEDS: MELATONIN 3 MG TABLET PO SCH (19:20)
--- NOTE | 2018-10-28 22:30 | PDOC ---
Exam Note: Aleksandar Note: Please also refer to the separate dictated note~for this date of service dictated separately.~Patient seen individually. Discussed the patient with Nursing staff reviewed the chart.~Reviewed interim history and current functioning. Reviewed vital signs,~Labs/ Radiology~and current medications noted below. Continue current treatment with the changes noted in the dictated addendum note Assessment: Vital Signs: Vital Signs Date Time Temp Pulse Resp B/P (MAP) Pulse Ox O2 Delivery O2 Flow Rate FiO2 10/28/18 16:16 97.6 93 20 103/64 (77) 97 Room Air I&O Intake and Output 10/28/18 07:01 Intake Total 960 ml Balance 960 ml Intake Oral 960 ml # Bowel Movements 1 Current Medications: Meds: Current Medications Albuterol Sulfate (Ventolin) 2.5 mg PRN Q4HRS PRN NEB SHORTNESS OF BREATH; Start 10/18/18 at 22:45 Albuterol Sulfate (Ventolin) 2.5 mg PRN Q4HRS NEB ; Start 10/18/18 at 23:30; Status UNV Levothyroxine Sodium (Synthroid) 137 mcg DAILY06 PO Last administered on at 06:12; Start 10/19/18 at 06:00 Olanzapine (ZyPREXA ZYDIS) 5 mg HS PO Last administered on 10/28/18 19:19; Start 10/19/18 at 21:00 Alendronate Sodium (Fosamax) 70 mg WEEKLY@0600 PO Last administered on at 06:28; Start 10/25/18 at 06:00 Amantadine HCl (Symmetrel) 100 mg DAILY PO Last administered on 10/28/18at 09:33 ; Start 10/19/18 at 09:00 Aripiprazole (Abilify) 5 mg DAILY PO Last administered on 10/28/18 09:32; Start 10/19/18 at 09:00 Calcium/Vitamin D (Oscal D 500mg/ 200uts) 1 tab DAILY PO Last administered on at 09:33; Start 10/19/18 at 08:00 Duloxetine HCl (Cymbalta) 60 mg DAILY PO Last administered on 10/20/18at 09:38; Start 10/19/18 at 09:00; Stop 10/20/18 at 17:46; Status DC EZETIMIBE (Zetia) 10 mg DAILY PO Last administered on 10/28/18 09:33; Start at 09:00 Melatonin 3 mg QHS PO Last administered on 10/28/18 19:20; Start 10/19/18 at 21 :00 Non-Formulary Medication (Nintedanib Esylate (Ofev)) 150 mg BID PO ; Start 10/19 at 09:00; Status UNV Fish Oil (Fish Oil) 1,000 mg DAILY PO Last administered on 10/28/18 09:32; Start 10/19/18 at 09:00 Acetaminophen (Tylenol) 650 mg PRN Q6HRS PRN PO PAIN / TEMP Last administered on 10/26/18 22:13; Start 10/19/18 at 00:00 Multi-Ingredient Ointment (Analgesic [place]) 1 sherrill PRN QID PRN TP MUSCLE PAIN; Start 10/19/18 at 00:00 Al Hydroxide/Mg Hydroxide (Mylanta Plus Xs) 15 ml PRN AFTMEALHC PRN PO DYSPEPSIA Last administered on 10/28/18 09:44; Start 10/19/18 at 00:00 Magnesium Hydroxide (Milk Of Magnesia) 2,400 mg PRN QHS PRN PO CONSTIPATION Last administered on 10/22/18 13:59; Start 10/19/18 at 00:00 Trazodone HCl (Desyrel) 100 mg HS PO Last administered on 10/28/18 19:19; Start 10/19/18 at 21:00 Simvastatin (Zocor) 20 mg DAILY PO Last administered on 10/28/18 09:33; Start 10/19/18 at 09:00 Fluvoxamine Maleate (Luvox) 25 mg QHS PO Last administered on 10/22/18 20:54; Start 10/20/18 at 21:00; Stop 10/22/18 at 23:00; Status DC Fluvoxamine Maleate (Luvox) 50 mg QHS PO Last administered on 10/26/18 20:17; Start 10/23/18 at 21:00; Stop 10/27/18 at 16:56; Status DC Cefdinir (Omnicef) 300 mg BIDWMEALS PO Last administered on 10/28/18 16:51; Start 10/22/18 at 19:00; Stop 10/29/18 at 09:00 Lactobacillus Rhamnosus (Culturelle) 1 cap BID PO Last administered on 19:19; Start 10/22/18 at 21:00; Stop 11/05/18 at 20:59 Docusate Sodium (Colace) 100 mg BID PO Last administered on 10/28/18at 19:20; Start 10/23/18 at 21:00 Polyethylene Glycol (miraLAX) 17 gm DAILY PO Last administered on 10/28/18at 09: 32; Start 10/24/18 at 09:00 Sodium Biphosphate/ Sodium Phosphate (Fleet Adult) 133 ml 1X ONCE [place] Last administered on 10/24/18at 17:53; Start 10/24/18 at 17:00; Stop 10/24/18 at 17:01 ; Status DC Levothyroxine Sodium (Synthroid) 137 mcg 1X ONCE PO Last administered on at 05:59; Start 10/27/18 at 06:00; Stop 10/27/18 at 06:01; Status DC Fluvoxamine Maleate (Luvox) 75 mg HS PO Last administered on 10/28/18 19:19; Start 10/27/18 at 21:00 Furosemide (Lasix) 20 mg DAILY PO ; Start 10/29/18 at 09:00 Potassium Chloride (Klor-Con) 20 meq DAILYWBKFT PO ; Start 10/29/18 at 08:00 Active Scripts Active Reported Fluvoxamine Maleate 50 Mg Tablet 50 Mg PO HS Polyethylene Glycol 3350 255 Gm Powder 17 Gm PO DAILY Analgesic [place] (Methyl Salicylate/Menthol) 28 Gm Oint...g. 1 Sherrill TP PRN QID PRN Milk Of Magnesia (Magnesium Hydroxide) 2,400 Mg/10 Ml Oral.susp 2,400 Mg PO PRN QHS PRN Maalox Advanced Suspension (Mag Hydrox/Aluminum Hyd/Simeth) 355 Ml Oral.susp 15 Ml PO PRN AFTMEALHC PRN Culturelle (Lactobacillus Rhamnosus Gg) 1 Each Capsule 1 Cap PO BID Docusate Sodium 100 Mg Capsule 100 Mg PO BID Cefdinir 300 Mg Capsule 300 Mg PO BIDWMEALS Tylenol (Acetaminophen) 325 Mg Tablet 650 Mg PO PRN Q6HRS PRN Trazodone Hcl 100 Mg Tablet 100 Mg PO HS Ofev (Nintedanib Esylate) 150 Mg Capsule 150 Mg PO BID Melatonin 3 Mg Tablet 5 Mg PO HS Levothyroxine Sodium 137 Mcg Tablet 137 Mcg PO DAILYAC Fish Oil 1,000 mg Softgel ([place]-3/Dha/Epa/Fish Oil) 1,000 Mg Capsule 1,000 Mg PO DAILY Cymbalta (Duloxetine Hcl) 60 Mg Capsule.dr 60 Mg PO DAILY Calcium 500 + Vit D 400 Tablet (Calcium Carbonate/Vitamin D3) 1 Each Tablet 1 Each PO DAILY Vytorin 10-20 Mg Tablet (Ezetimibe/Simvastatin) 1 Each Tablet 1 Each PO DAILY Abilify (Aripiprazole) 5 Mg Tablet 5 Mg PO DAILY Alendronate Sodium 70 Mg Tablet 70 Mg PO WEEKLY Zyprexa Zydis (Olanzapine) 5 Mg Tab.rapdis 5 Mg PO HS Amantadine (Amantadine Hcl) 100 Mg Tablet 100 Mg PO DAILY Albuterol Sulfate Neb Soln (Albuterol Sulfate) 2.5 Mg/3 Ml Vial.neb 1 Vial NEB PRN Q4HRS I have reviewed the current psychotropics carefully including drug interactions. Risk benefit ratio favors no change other than as noted in my dictated progress note. EVA JAMES MD Oct 28, 2018 22:30
[2018-10-29] MEDS: LEVOTHYROXINE 137 MCG TABLET PO SCH (06:10)
[2018-10-29 06:11] VITALS: BP 115/78
[2018-10-29] MEDS: NINTEDANIB ESYLATE 150 MG PO SCH ×2 (08:20→21:33)
[2018-10-29] MEDS: FUROSEMIDE 20 MG TABLET PO SCH (08:20)
[2018-10-29] MEDS: LACTOBACILLUS RHAMNOSUS GG 1 CAPSULE. PO SCH ×2 (08:20→21:33)
[2018-10-29] MEDS: DOCUSATE SODIUM 100 MG CAPSULE PO SCH ×2 (08:20→21:33)
[2018-10-29] MEDS: CEFDINIR 300 MG CAPSULE PO SCH (08:20)
[2018-10-29] MEDS: ARIPiprazole 5 MG TABLET PO SCH (08:20)
[2018-10-29] MEDS: OMEGA-3 FATTY ACIDS/FISH OIL 1,000 MG CAPSULE. PO SCH (08:20)
[2018-10-29] MEDS: POTASSIUM CHLORIDE 20 MEQ TABLET.ER. PO SCH (08:20)
[2018-10-29] MEDS: CALCIUM CARB/VIT D3 500/200 TABLET PO SCH (08:21)
[2018-10-29] MEDS: POLYETHYLENE GLYCOL 3350 17 GM PACKET. PO SCH (08:21)
[2018-10-29] MEDS: AMANTADINE HCL 100 MG CAPSULE PO SCH (08:21)
[2018-10-29] MEDS: EZETIMIBE 10 MG TABLET PO SCH (08:21)
[2018-10-29] MEDS: SIMVASTATIN 20 MG TABLET PO SCH (08:22)
[2018-10-29 16:19] VITALS: BP 117/75
[2018-10-29] MEDS: traZODone 100 MG TABLET. PO SCH (21:33)
[2018-10-29] MEDS: MELATONIN 3 MG TABLET PO SCH (21:34)
--- NOTE | 2018-10-29 22:30 | PDOC ---
Exam Note: Aleksandar Note: Please also refer to the separate dictated note~for this date of service dictated separately.~Patient seen individually. Discussed the patient with Nursing staff reviewed the chart.~Reviewed interim history and current functioning. Reviewed vital signs,~Labs/ Radiology~and current medications noted below. Continue current treatment with the changes noted in the dictated addendum note Assessment: Vital Signs: Vital Signs Date Time Temp Pulse Resp B/P (MAP) Pulse Ox O2 Delivery O2 Flow Rate FiO2 10/29/18 16:19 98.0 102 20 117/75 (89) 99 Room Air I&O Intake and Output 10/29/18 07:01 Intake Total 840 ml Balance 840 ml Intake Oral 840 ml # Bowel Movements 2 Current Medications: Meds: Current Medications Albuterol Sulfate (Ventolin) 2.5 mg PRN Q4HRS PRN NEB SHORTNESS OF BREATH; Start 10/18/18 at 22:45 Albuterol Sulfate (Ventolin) 2.5 mg PRN Q4HRS NEB ; Start 10/18/18 at 23:30; Status UNV Levothyroxine Sodium (Synthroid) 137 mcg DAILY06 PO Last administered on at 06:10; Start 10/19/18 at 06:00 Olanzapine (ZyPREXA ZYDIS) 5 mg HS PO Last administered on 10/29/18at 21:42; Start 10/19/18 at 21:00 Alendronate Sodium (Fosamax) 70 mg WEEKLY@0600 PO Last administered on at 06:28; Start 10/25/18 at 06:00 Amantadine HCl (Symmetrel) 100 mg DAILY PO Last administered on 10/29/18at 08:21 ; Start 10/19/18 at 09:00 Aripiprazole (Abilify) 5 mg DAILY PO Last administered on 10/29/18at 08:20; Start 10/19/18 at 09:00 Calcium/Vitamin D (Oscal D 500mg/ 200uts) 1 tab DAILY PO Last administered on at 08:21; Start 10/19/18 at 08:00 Duloxetine HCl (Cymbalta) 60 mg DAILY PO Last administered on 10/20/18at 09:38; Start 10/19/18 at 09:00; Stop 10/20/18 at 17:46; Status DC EZETIMIBE (Zetia) 10 mg DAILY PO Last administered on 10/29/18 08:21; Start at 09:00 Melatonin 3 mg QHS PO Last administered on 10/29/18 21:34; Start 10/19/18 at 21 :00 Non-Formulary Medication (Nintedanib Esylate (Ofev)) 150 mg BID PO ; Start 10/19 at 09:00; Status UNV Fish Oil (Fish Oil) 1,000 mg DAILY PO Last administered on 10/29/18 08:20; Start 10/19/18 at 09:00 Acetaminophen (Tylenol) 650 mg PRN Q6HRS PRN PO PAIN / TEMP Last administered on 10/26/18 22:13; Start 10/19/18 at 00:00 Multi-Ingredient Ointment (Analgesic [place]) 1 sherrill PRN QID PRN TP MUSCLE PAIN; Start 10/19/18 at 00:00 Al Hydroxide/Mg Hydroxide (Mylanta Plus Xs) 15 ml PRN AFTMEALHC PRN PO DYSPEPSIA Last administered on 10/28/18 09:44; Start 10/19/18 at 00:00 Magnesium Hydroxide (Milk Of Magnesia) 2,400 mg PRN QHS PRN PO CONSTIPATION Last administered on 10/22/18 13:59; Start 10/19/18 at 00:00 Trazodone HCl (Desyrel) 100 mg HS PO Last administered on 10/29/18 21:33; Start 10/19/18 at 21:00 Simvastatin (Zocor) 20 mg DAILY PO Last administered on 10/29/18 08:22; Start 10/19/18 at 09:00 Fluvoxamine Maleate (Luvox) 25 mg QHS PO Last administered on 10/22/18 20:54; Start 10/20/18 at 21:00; Stop 10/22/18 at 23:00; Status DC Fluvoxamine Maleate (Luvox) 50 mg QHS PO Last administered on 10/26/18 20:17; Start 10/23/18 at 21:00; Stop 10/27/18 at 16:56; Status DC Cefdinir (Omnicef) 300 mg BIDWMEALS PO Last administered on 10/29/18 08:20; Start 10/22/18 at 19:00; Stop 10/29/18 at 09:00; Status DC Lactobacillus Rhamnosus (Culturelle) 1 cap BID PO Last administered on 21:33; Start 10/22/18 at 21:00; Stop 11/05/18 at 20:59 Docusate Sodium (Colace) 100 mg BID PO Last administered on 10/29/18 21:33; Start 10/23/18 at 21:00 Polyethylene Glycol (miraLAX) 17 gm DAILY PO Last administered on 10/29/18 08: 21; Start 10/24/18 at 09:00 Sodium Biphosphate/ Sodium Phosphate (Fleet Adult) 133 ml 1X ONCE [place] Last administered on 10/24/18 17:53; Start 10/24/18 at 17:00; Stop 10/24/18 at 17:01 ; Status DC Levothyroxine Sodium (Synthroid) 137 mcg 1X ONCE PO Last administered on at 05:59; Start 10/27/18 at 06:00; Stop 10/27/18 at 06:01; Status DC Fluvoxamine Maleate (Luvox) 75 mg HS PO Last administered on 10/29/18 21:42; Start 10/27/18 at 21:00 Furosemide (Lasix) 20 mg DAILY PO Last administered on 10/29/18 08:20; Start at 09:00 Potassium Chloride (Klor-Con) 20 meq DAILYWBKFT PO Last administered on at 08:20; Start 10/29/18 at 08:00 Active Scripts Active Reported Fluvoxamine Maleate 50 Mg Tablet 50 Mg PO HS Polyethylene Glycol 3350 255 Gm Powder 17 Gm PO DAILY Analgesic [place] (Methyl Salicylate/Menthol) 28 Gm Oint...g. 1 Sherrill TP PRN QID PRN Milk Of Magnesia (Magnesium Hydroxide) 2,400 Mg/10 Ml Oral.susp 2,400 Mg PO PRN QHS PRN Maalox Advanced Suspension (Mag Hydrox/Aluminum Hyd/Simeth) 355 Ml Oral.susp 15 Ml PO PRN AFTMEALHC PRN Culturelle (Lactobacillus Rhamnosus Gg) 1 Each Capsule 1 Cap PO BID Docusate Sodium 100 Mg Capsule 100 Mg PO BID Cefdinir 300 Mg Capsule 300 Mg PO BIDWMEALS Tylenol (Acetaminophen) 325 Mg Tablet 650 Mg PO PRN Q6HRS PRN Trazodone Hcl 100 Mg Tablet 100 Mg PO HS Ofev (Nintedanib Esylate) 150 Mg Capsule 150 Mg PO BID Melatonin 3 Mg Tablet 5 Mg PO HS Levothyroxine Sodium 137 Mcg Tablet 137 Mcg PO DAILYAC Fish Oil 1,000 mg Softgel ([place]-3/Dha/Epa/Fish Oil) 1,000 Mg Capsule 1,000 Mg PO DAILY Cymbalta (Duloxetine Hcl) 60 Mg Capsule.dr 60 Mg PO DAILY Calcium 500 + Vit D 400 Tablet (Calcium Carbonate/Vitamin D3) 1 Each Tablet 1 Each PO DAILY Vytorin 10-20 Mg Tablet (Ezetimibe/Simvastatin) 1 Each Tablet 1 Each PO DAILY Abilify (Aripiprazole) 5 Mg Tablet 5 Mg PO DAILY Alendronate Sodium 70 Mg Tablet 70 Mg PO WEEKLY Zyprexa Zydis (Olanzapine) 5 Mg Tab.rapdis 5 Mg PO HS Amantadine (Amantadine Hcl) 100 Mg Tablet 100 Mg PO DAILY Albuterol Sulfate Neb Soln (Albuterol Sulfate) 2.5 Mg/3 Ml Vial.neb 1 Vial NEB PRN Q4HRS I have reviewed the current psychotropics carefully including drug interactions. Risk benefit ratio favors no change other than as noted in my dictated progress note. EVA JAMES MD Oct 29, 2018 22:30
--- NOTE | 2018-10-29 23:38 | PN ---
DATE: 10/27/2018 PSYCHIATRIC PROGRESS NOTE This late entry 10/27/2018 covers elements not covered in my initial note. SUBJECTIVE: I met with the patient in the evening. The patient slept 5-1/2 hours previous night. She can decide which meds to take, takes some of them, crushed off. When they were given floated, she was gagging. She does have speech eval to be completed. REVIEW OF SYSTEMS: Ambulation impaired, in wheelchair. No CV, , pulmonary, eye system symptoms on review. MENTAL STATUS EXAM: Oriented to herself and situation. Speech has some latency, low in volume, coherent, abstraction fair, computation impaired, language function intact, attention span short. Mood and affect still somewhat depressed, anxious, withdrawn. LABORATORY DATA: Reviewed. IMPRESSION: Unchanged from initial note. PLAN: No change from initial note, but after she has been on Luvox 50 mg at bedtime for 3 days, we will increase it to 75 mg at bedtime. EVA JAMES MD DR: ABDELRAHMAN/tree JOB#: [id number] / [id number]
[2018-10-30] MEDS: LEVOTHYROXINE 137 MCG TABLET PO SCH (05:52)
[2018-10-30 06:16] VITALS: BP 126/79
[2018-10-30] MEDS: POTASSIUM CHLORIDE 20 MEQ TABLET.ER. PO SCH (08:12)
[2018-10-30] MEDS: ARIPiprazole 5 MG TABLET PO SCH (08:12)
[2018-10-30] MEDS: DOCUSATE SODIUM 100 MG CAPSULE PO SCH ×2 (08:12→20:34)
[2018-10-30] MEDS: NINTEDANIB ESYLATE 150 MG PO SCH ×2 (08:12→20:34)
[2018-10-30] MEDS: FUROSEMIDE 20 MG TABLET PO SCH (08:18)
[2018-10-30] MEDS: CALCIUM CARB/VIT D3 500/200 TABLET PO SCH (08:18)
[2018-10-30] MEDS: POLYETHYLENE GLYCOL 3350 17 GM PACKET. PO SCH (08:18)
[2018-10-30] MEDS: AMANTADINE HCL 100 MG CAPSULE PO SCH (08:18)
[2018-10-30] MEDS: OMEGA-3 FATTY ACIDS/FISH OIL 1,000 MG CAPSULE. PO SCH (08:18)
[2018-10-30] MEDS: LACTOBACILLUS RHAMNOSUS GG 1 CAPSULE. PO SCH ×2 (08:18→20:33)
[2018-10-30] MEDS: EZETIMIBE 10 MG TABLET PO SCH (08:20)
[2018-10-30] MEDS: SIMVASTATIN 20 MG TABLET PO SCH (08:21)
[2018-10-30 11:10] LABS: BASO # 0.1 x10^3/uL (0.0-0.2); BASO % 2 % (0-3); EOS # 0.2 x10^3/uL (0.0-0.7); EOS % 2 % (0-3); HEMATOCRIT 32.8 % (36.0-47.0); LYMPH # 1.6 x10^3/uL (1.0-4.8); LYMPH % 19 % (24-48); MEAN CORPUSCULAR HEMOGLOBIN 34 pg (25-35); MEAN CORPUSCULAR HGB CONC 34 g/dL (31-37); MEAN CORPUSCULAR VOLUME 100 fL (79-100); MONO # 0.9 x10^3/uL (0.0-1.1); MONO % 11 % (0-9); NEUT # 5.5 x10^3uL (1.8-7.7); NEUT % 66 % (31-73); PLATELET COUNT 272 x10^3/uL (140-400); RED BLOOD COUNT 3.28 x10^6/uL (3.50-5.40); RED CELL DISTRIBUTION WIDTH 14.5 % (11.5-14.5); WHITE BLOOD COUNT 8.2 x10^3/uL (4.0-11.0)
[2018-10-30 11:23] LABS: ALBUMIN 3.1 g/dL (3.4-5.0); ALBUMIN/GLOBULIN RATIO 0.7 (1.0-1.7); CALCIUM 9.4 mg/dL (8.5-10.1); CREATININE 0.9 mg/dL (0.6-1.0); POTASSIUM 4.2 mmol/L (3.5-5.1); TOTAL BILIRUBIN 0.4 mg/dL (0.2-1.0); TOTAL PROTEIN 7.3 g/dL (6.4-8.2)
[2018-10-30 16:19] VITALS: BP 116/78
[2018-10-30] MEDS: traZODone 100 MG TABLET. PO SCH (20:33)
[2018-10-30] MEDS: MELATONIN 3 MG TABLET PO SCH (20:33)
--- NOTE | 2018-10-30 22:04 | PN ---
DATE: 10/28/2018 This late entry for 10/28/2018 covers elements not covered in my initial note. SUBJECTIVE: I met with the patient in the evening. The patient slept 7-3/4 hours previous night. She had a swallow study, which was negative. She is anxious, somewhat obsessive, talked about something hitting her mouth. REVIEW OF SYSTEMS: Ambulation impaired, in wheelchair. No CV, , pulmonary, eye system symptoms on review. MENTAL STATUS EXAM: Oriented to herself and situation. Speech has some latency, coherent. Abstraction fair, computation impaired, language function intact, attention span short. Mood is less anxious, dysphoric. No suicidal or homicidal ideation. LABORATORY DATA: Reviewed. IMPRESSION: Major depressive disorder with psychotic features; anxiety disorder, unspecified. PLAN: Continue psychotropics from initial note. Luvox 75 mg at bedtime for her OCD symptoms, melatonin, Zyprexa 5 mg at bedtime, Abilify 5 mg a day, trazodone 100 mg at bedtime. As an outpatient once she is psychiatrically stable, the Abilify could be tapered and discontinued while she remains on the Zyprexa, but for now, we will leave them both at the current dosage. EVA JAMES MD DR: ABDELRAHMAN/tree JOB#: [id number] / [id number]
--- NOTE | 2018-10-30 22:37 | PDOC ---
Exam Note: Aleksandar Note: Please also refer to the separate dictated note~for this date of service dictated separately.~Patient seen individually. Discussed the patient with Nursing staff reviewed the chart.~Reviewed interim history and current functioning. Reviewed vital signs,~Labs/ Radiology~and current medications noted below. Continue current treatment with the changes noted in the dictated addendum note Assessment: Vital Signs: Vital Signs Date Time Temp Pulse Resp B/P (MAP) Pulse Ox O2 Delivery O2 Flow Rate FiO2 10/30/18 16:19 98.6 97 16 116/78 (91) 99 10/29/18 16:19 Room Air I&O Intake and Output 10/30/18 07:01 Intake Total 840 ml Balance 840 ml Intake Oral 840 ml # Bowel Movements 1 Labs: Laboratory Tests Test 10/30/18 10:54 White Blood Count 8.2 x10^3/uL (4.0-11.0) Red Blood Count 3.28 x10^6/uL (3.50-5.40) L Hemoglobin 11.0 g/dL (12.0-15.5) L Hematocrit 32.8 % (36.0-47.0) L Mean Corpuscular Volume 100 fL (79-100) Mean Corpuscular Hemoglobin 34 pg (25-35) Mean Corpuscular Hemoglobin Concent 34 g/dL (31-37) Red Cell Distribution Width 14.5 % (11.5-14.5) Platelet Count 272 x10^3/uL (140-400) Neutrophils (%) (Auto) 66 % (31-73) Lymphocytes (%) (Auto) 19 % (24-48) L Monocytes (%) (Auto) 11 % (0-9) H Eosinophils (%) (Auto) 2 % (0-3) Basophils (%) (Auto) 2 % (0-3) Neutrophils # (Auto) 5.5 x10^3uL (1.8-7.7) Lymphocytes # (Auto) 1.6 x10^3/uL (1.0-4.8) Monocytes # (Auto) 0.9 x10^3/uL (0.0-1.1) Eosinophils # (Auto) 0.2 x10^3/uL (0.0-0.7) Basophils # (Auto) 0.1 x10^3/uL (0.0-0.2) Sodium Level 140 mmol/L (136-145) Potassium Level 4.2 mmol/L (3.5-5.1) Chloride Level 102 mmol/L (98-107) Carbon Dioxide Level 34 mmol/L (21-32) H Anion Gap 4 (6-14) L Blood Urea Nitrogen 13 mg/dL (7-20) Creatinine 0.9 mg/dL (0.6-1.0) Estimated GFR (Cockcroft-Gault) 63.0 BUN/Creatinine Ratio 14 (6-20) Glucose Level 101 mg/dL (70-99) H Calcium Level 9.4 mg/dL (8.5-10.1) Total Bilirubin 0.4 mg/dL (0.2-1.0) Aspartate Amino Transferase (AST) 23 U/L (15-37) Alanine Aminotransferase (ALT) 25 U/L (14-59) Alkaline Phosphatase 56 U/L (46-116) Total Protein 7.3 g/dL (6.4-8.2) Albumin 3.1 g/dL (3.4-5.0) L Albumin/Globulin Ratio 0.7 (1.0-1.7) L Current Medications: Meds: Current Medications Albuterol Sulfate (Ventolin) 2.5 mg PRN Q4HRS PRN NEB SHORTNESS OF BREATH; Start 10/18/18 at 22:45 Albuterol Sulfate (Ventolin) 2.5 mg PRN Q4HRS NEB ; Start 10/18/18 at 23:30; Status UNV Levothyroxine Sodium (Synthroid) 137 mcg DAILY06 PO Last administered on at 05:52; Start 10/19/18 at 06:00 Olanzapine (ZyPREXA ZYDIS) 5 mg HS PO Last administered on 10/30/18at 20:33; Start 10/19/18 at 21:00 Alendronate Sodium (Fosamax) 70 mg WEEKLY@0600 PO Last administered on at 06:28; Start 10/25/18 at 06:00 Amantadine HCl (Symmetrel) 100 mg DAILY PO Last administered on 10/30/18at 08:18 ; Start 10/19/18 at 09:00 Aripiprazole (Abilify) 5 mg DAILY PO Last administered on 10/30/18 08:12; Start 10/19/18 at 09:00 Calcium/Vitamin D (Oscal D 500mg/ 200uts) 1 tab DAILY PO Last administered on 08:18; Start 10/19/18 at 08:00 Duloxetine HCl (Cymbalta) 60 mg DAILY PO Last administered on 10/20/18 09:38; Start 10/19/18 at 09:00; Stop 10/20/18 at 17:46; Status DC EZETIMIBE (Zetia) 10 mg DAILY PO Last administered on 10/30/18 08:20; Start at 09:00 Melatonin 3 mg QHS PO Last administered on 10/30/18 20:33; Start 10/19/18 at 21 :00 Non-Formulary Medication (Nintedanib Esylate (Ofev)) 150 mg BID PO ; Start 10/19 at 09:00; Status UNV Fish Oil (Fish Oil) 1,000 mg DAILY PO Last administered on 10/30/18 08:18; Start 10/19/18 at 09:00 Acetaminophen (Tylenol) 650 mg PRN Q6HRS PRN PO PAIN / TEMP Last administered on 10/26/18 22:13; Start 10/19/18 at 00:00 Multi-Ingredient Ointment (Analgesic [place]) 1 sherrill PRN QID PRN TP MUSCLE PAIN; Start 10/19/18 at 00:00 Al Hydroxide/Mg Hydroxide (Mylanta Plus Xs) 15 ml PRN AFTMEALHC PRN PO DYSPEPSIA Last administered on 10/28/18 09:44; Start 10/19/18 at 00:00 Magnesium Hydroxide (Milk Of Magnesia) 2,400 mg PRN QHS PRN PO CONSTIPATION Last administered on 10/22/18 13:59; Start 10/19/18 at 00:00 Trazodone HCl (Desyrel) 100 mg HS PO Last administered on 10/30/18 20:33; Start 10/19/18 at 21:00 Simvastatin (Zocor) 20 mg DAILY PO Last administered on 10/30/18 08:21; Start 10/19/18 at 09:00 Fluvoxamine Maleate (Luvox) 25 mg QHS PO Last administered on 10/22/18 20:54; Start 10/20/18 at 21:00; Stop 10/22/18 at 23:00; Status DC Fluvoxamine Maleate (Luvox) 50 mg QHS PO Last administered on 10/26/18 20:17; Start 10/23/18 at 21:00; Stop 10/27/18 at 16:56; Status DC Cefdinir (Omnicef) 300 mg BIDWMEALS PO Last administered on 10/29/18 08:20; Start 10/22/18 at 19:00; Stop 10/29/18 at 09:00; Status DC Lactobacillus Rhamnosus (Culturelle) 1 cap BID PO Last administered on 20:33; Start 10/22/18 at 21:00; Stop 11/05/18 at 20:59 Docusate Sodium (Colace) 100 mg BID PO Last administered on 10/30/18 20:34; Start 10/23/18 at 21:00 Polyethylene Glycol (miraLAX) 17 gm DAILY PO Last administered on 10/30/18 08: 18; Start 10/24/18 at 09:00 Sodium Biphosphate/ Sodium Phosphate (Fleet Adult) 133 ml 1X ONCE [place] Last administered on 10/24/18 17:53; Start 10/24/18 at 17:00; Stop 10/24/18 at 17:01 ; Status DC Levothyroxine Sodium (Synthroid) 137 mcg 1X ONCE PO Last administered on 05:59; Start 10/27/18 at 06:00; Stop 10/27/18 at 06:01; Status DC Fluvoxamine Maleate (Luvox) 75 mg HS PO Last administered on 10/30/18 20:33; Start 10/27/18 at 21:00 Furosemide (Lasix) 20 mg DAILY PO Last administered on 10/30/18 08:18; Start at 09:00 Potassium Chloride (Klor-Con) 20 meq DAILYWBKFT PO Last administered on 08:12; Start 10/29/18 at 08:00 Active Scripts Active Reported Fluvoxamine Maleate 50 Mg Tablet 50 Mg PO HS Polyethylene Glycol 3350 255 Gm Powder 17 Gm PO DAILY Analgesic [place] (Methyl Salicylate/Menthol) 28 Gm Oint...g. 1 [place] TP PRN QID PRN Milk Of Magnesia (Magnesium Hydroxide) 2,400 Mg/10 Ml Oral.susp 2,400 Mg PO PRN QHS PRN Maalox Advanced Suspension (Mag Hydrox/Aluminum Hyd/Simeth) 355 Ml Oral.susp 15 Ml PO PRN AFTMEALHC PRN Culturelle (Lactobacillus Rhamnosus Gg) 1 Each Capsule 1 Cap PO BID Docusate Sodium 100 Mg Capsule 100 Mg PO BID Cefdinir 300 Mg Capsule 300 Mg PO BIDWMEALS Tylenol (Acetaminophen) 325 Mg Tablet 650 Mg PO PRN Q6HRS PRN Trazodone Hcl 100 Mg Tablet 100 Mg PO HS Ofev (Nintedanib Esylate) 150 Mg Capsule 150 Mg PO BID Melatonin 3 Mg Tablet 5 Mg PO HS Levothyroxine Sodium 137 Mcg Tablet 137 Mcg PO DAILYAC Fish Oil 1,000 mg Softgel ([place]-3/Dha/Epa/Fish Oil) 1,000 Mg Capsule 1,000 Mg PO DAILY Cymbalta (Duloxetine Hcl) 60 Mg Capsule.dr 60 Mg PO DAILY Calcium 500 + Vit D 400 Tablet (Calcium Carbonate/Vitamin D3) 1 Each Tablet 1 Each PO DAILY Vytorin 10-20 Mg Tablet (Ezetimibe/Simvastatin) 1 Each Tablet 1 Each PO DAILY Abilify (Aripiprazole) 5 Mg Tablet 5 Mg PO DAILY Alendronate Sodium 70 Mg Tablet 70 Mg PO WEEKLY Zyprexa Zydis (Olanzapine) 5 Mg Tab.rapdis 5 Mg PO HS Amantadine (Amantadine Hcl) 100 Mg Tablet 100 Mg PO DAILY Albuterol Sulfate Neb Soln (Albuterol Sulfate) 2.5 Mg/3 Ml Vial.neb 1 Vial NEB PRN Q4HRS I have reviewed the current psychotropics carefully including drug interactions. Risk benefit ratio favors no change other than as noted in my dictated progress note. EVA JAMES MD Oct 30, 2018 22:37
--- NOTE | 2018-10-31 00:09 | PN ---
DATE: 10/29/2018 This late entry for 10/29/2018 covers elements not covered in my initial note. SUBJECTIVE: I met with the patient in the evening. The patient slept 7-1/4 hours previous night. She is somewhat less anxious, has had some trouble swallowing. We will defer to Dr. Saeed from medical standpoint. REVIEW OF SYSTEMS: Ambulation impaired, in wheelchair. No CV, , pulmonary, eye system symptoms on review. MENTAL STATUS EXAM: Oriented to herself, situation. Speech has some latency, low in volume, coherent, abstraction fair, computation impaired, language function intact, attention span short. Mood and affect, less depressed. LABORATORY DATA: Reviewed. IMPRESSION: Unchanged from initial note. PLAN: No change from initial note. MAN Kory JAMES MD DR: ABDELRAHMAN/tree JOB#: [id number] / [id number]
[2018-10-31] MEDS ORDERED: FURO-69 PO (00:59)
[2018-10-31] MEDS ORDERED: POTA10TA10 PO (01:00)
[2018-10-31] MEDS ORDERED: SIMV20TA PO (01:01)
[2018-10-31] MEDS: LEVOTHYROXINE 137 MCG TABLET PO SCH (06:09)
[2018-10-31 06:20] VITALS: BP 116/77
[2018-10-31] MEDS: NINTEDANIB ESYLATE 150 MG PO SCH (09:00)
[2018-10-31] MEDS: EZETIMIBE 10 MG TABLET PO SCH (10:36)
[2018-10-31] MEDS: OMEGA-3 FATTY ACIDS/FISH OIL 1,000 MG CAPSULE. PO SCH (10:36)
[2018-10-31] MEDS: LACTOBACILLUS RHAMNOSUS GG 1 CAPSULE. PO SCH (10:36)
[2018-10-31] MEDS: SIMVASTATIN 20 MG TABLET PO SCH (10:36)
[2018-10-31] MEDS: POTASSIUM CHLORIDE 20 MEQ TABLET.ER. PO SCH (10:36)
[2018-10-31] MEDS: POLYETHYLENE GLYCOL 3350 17 GM PACKET. PO SCH (10:36)
[2018-10-31] MEDS: ARIPiprazole 5 MG TABLET PO SCH (10:37)
[2018-10-31] MEDS: FUROSEMIDE 20 MG TABLET PO SCH (10:37)
[2018-10-31] MEDS: CALCIUM CARB/VIT D3 500/200 TABLET PO SCH (10:37)
[2018-10-31] MEDS: DOCUSATE SODIUM 100 MG CAPSULE PO SCH (10:39)
[2018-10-31] MEDS: AMANTADINE HCL 100 MG CAPSULE PO SCH (10:39)
[2018-10-31 17:11] VITALS: BP 117/75
--- NOTE | 2018-10-31 18:39 | PDOC ---
Exam Note: Aleksandar Note: Please also refer to the separate dictated note~for this date of service dictated separately.~Patient seen individually. Discussed the patient with Nursing staff reviewed the chart.~Reviewed interim history and current functioning. Reviewed vital signs,~Labs/ Radiology~and current medications noted below. Continue current treatment with the changes noted in the dictated addendum note Assessment: Vital Signs: Vital Signs Date Time Temp Pulse Resp B/P (MAP) Pulse Ox O2 Delivery O2 Flow Rate FiO2 10/31/18 17:11 97.8 98 18 117/75 (89) 97 10/29/18 16:19 Room Air I&O Intake and Output 10/31/18 07:01 Intake Total 1320 ml Balance 1320 ml Intake Oral 1320 ml # Bowel Movements 1 Current Medications: Meds: Current Medications Albuterol Sulfate (Ventolin) 2.5 mg PRN Q4HRS PRN NEB SHORTNESS OF BREATH; Start 10/18/18 at 22:45 Albuterol Sulfate (Ventolin) 2.5 mg PRN Q4HRS NEB ; Start 10/18/18 at 23:30; Status UNV Levothyroxine Sodium (Synthroid) 137 mcg DAILY06 PO Last administered on 06:09; Start 10/19/18 at 06:00 Olanzapine (ZyPREXA ZYDIS) 5 mg HS PO Last administered on 10/30/18at 20:33; Start 10/19/18 at 21:00 Alendronate Sodium (Fosamax) 70 mg WEEKLY@0600 PO Last administered on at 06:28; Start 10/25/18 at 06:00 Amantadine HCl (Symmetrel) 100 mg DAILY PO Last administered on 10/31/18 10:39 ; Start 10/19/18 at 09:00 Aripiprazole (Abilify) 5 mg DAILY PO Last administered on 10/31/18 10:37; Start 10/19/18 at 09:00 Calcium/Vitamin D (Oscal D 500mg/ 200uts) 1 tab DAILY PO Last administered on 10:37; Start 10/19/18 at 08:00 Duloxetine HCl (Cymbalta) 60 mg DAILY PO Last administered on 10/20/18 09:38; Start 10/19/18 at 09:00; Stop 10/20/18 at 17:46; Status DC EZETIMIBE (Zetia) 10 mg DAILY PO Last administered on 10/31/18 10:36; Start at 09:00 Melatonin 3 mg QHS PO Last administered on 10/30/18 20:33; Start 10/19/18 at 21 :00 Non-Formulary Medication (Nintedanib Esylate (Ofev)) 150 mg BID PO ; Start 10/19 at 09:00; Status UNV Fish Oil (Fish Oil) 1,000 mg DAILY PO Last administered on 10/31/18 10:36; Start 10/19/18 at 09:00 Acetaminophen (Tylenol) 650 mg PRN Q6HRS PRN PO PAIN / TEMP Last administered on 10/26/18 22:13; Start 10/19/18 at 00:00 Multi-Ingredient Ointment (Analgesic Clifton) 1 sherrill PRN QID PRN TP MUSCLE PAIN; Start 10/19/18 at 00:00 Al Hydroxide/Mg Hydroxide (Mylanta Plus Xs) 15 ml PRN AFTMEALHC PRN PO DYSPEPSIA Last administered on 10/28/18 09:44; Start 10/19/18 at 00:00 Magnesium Hydroxide (Milk Of Magnesia) 2,400 mg PRN QHS PRN PO CONSTIPATION Last administered on 10/22/18 13:59; Start 10/19/18 at 00:00 Trazodone HCl (Desyrel) 100 mg HS PO Last administered on 10/30/18 20:33; Start 10/19/18 at 21:00 Simvastatin (Zocor) 20 mg DAILY PO Last administered on 10/31/18 10:36; Start 10/19/18 at 09:00 Fluvoxamine Maleate (Luvox) 25 mg QHS PO Last administered on 10/22/18 20:54; Start 10/20/18 at 21:00; Stop 10/22/18 at 23:00; Status DC Fluvoxamine Maleate (Luvox) 50 mg QHS PO Last administered on 10/26/18 20:17; Start 10/23/18 at 21:00; Stop 10/27/18 at 16:56; Status DC Cefdinir (Omnicef) 300 mg BIDWMEALS PO Last administered on 10/29/18 08:20; Start 10/22/18 at 19:00; Stop 10/29/18 at 09:00; Status DC Lactobacillus Rhamnosus (Culturelle) 1 cap BID PO Last administered on 10:36; Start 10/22/18 at 21:00; Stop 11/05/18 at 20:59 Docusate Sodium (Colace) 100 mg BID PO Last administered on 10/31/18 10:39; Start 10/23/18 at 21:00 Polyethylene Glycol (miraLAX) 17 gm DAILY PO Last administered on 10/31/18 10: 36; Start 10/24/18 at 09:00 Sodium Biphosphate/ Sodium Phosphate (Fleet Adult) 133 ml 1X ONCE MT Last administered on 10/24/18at 17:53; Start 10/24/18 at 17:00; Stop 10/24/18 at 17:01 ; Status DC Levothyroxine Sodium (Synthroid) 137 mcg 1X ONCE PO Last administered on at 05:59; Start 10/27/18 at 06:00; Stop 10/27/18 at 06:01; Status DC Fluvoxamine Maleate (Luvox) 75 mg HS PO Last administered on 10/30/18 20:33; Start 10/27/18 at 21:00 Furosemide (Lasix) 20 mg DAILY PO Last administered on 10/31/18 10:37; Start at 09:00 Potassium Chloride (Klor-Con) 20 meq DAILYWBKFT PO Last administered on 10:36; Start 10/29/18 at 08:00 Active Scripts Active Reported Potassium Chloride 10 Meq Tablet.er 20 Meq PO DAILY Lasix (Furosemide) 20 Mg Tablet 20 Mg PO DAILY Fluvoxamine Maleate 50 Mg Tablet 75 Mg PO HS Polyethylene Glycol 3350 255 Gm Powder 17 Gm PO DAILY Analgesic Clifton (Methyl Salicylate/Menthol) 28 Gm Oint...g. 1 Sherrill TP PRN QID PRN Milk Of Magnesia (Magnesium Hydroxide) 2,400 Mg/10 Ml Oral.susp 2,400 Mg PO PRN QHS PRN Maalox Advanced Suspension (Mag Hydrox/Aluminum Hyd/Simeth) 355 Ml Oral.susp 15 Ml PO PRN AFTMEALHC PRN Culturelle (Lactobacillus Rhamnosus Gg) 1 Each Capsule 1 Cap PO BID Docusate Sodium 100 Mg Capsule 100 Mg PO BID Tylenol (Acetaminophen) 325 Mg Tablet 650 Mg PO PRN Q6HRS PRN Trazodone Hcl 100 Mg Tablet 100 Mg PO HS Ofev (Nintedanib Esylate) 150 Mg Capsule 150 Mg PO BID Melatonin 3 Mg Tablet 3 Mg PO HS Levothyroxine Sodium 137 Mcg Tablet 137 Mcg PO DAILYAC Fish Oil 1,000 mg Softgel ([place]-3/Dha/Epa/Fish Oil) 1,000 Mg Capsule 1,000 Mg PO DAILY Calcium 500 + Vit D 400 Tablet (Calcium Carbonate/Vitamin D3) 1 Each Tablet 1 Each PO DAILY Vytorin 10-20 Mg Tablet (Ezetimibe/Simvastatin) 1 Each Tablet 1 Each PO DAILY Abilify (Aripiprazole) 5 Mg Tablet 5 Mg PO DAILY Alendronate Sodium 70 Mg Tablet 70 Mg PO WEEKLY administer on Wednesdays Zyprexa Zydis (Olanzapine) 5 Mg Tab.rapdis 5 Mg PO HS Amantadine (Amantadine Hcl) 100 Mg Tablet 100 Mg PO DAILY Albuterol Sulfate Neb Soln (Albuterol Sulfate) 2.5 Mg/3 Ml Vial.neb 1 Vial NEB PRN Q4HRS I have reviewed the current psychotropics carefully including drug interactions. Risk benefit ratio favors no change other than as noted in my dictated progress note. Diagnosis: Problems: (1) Anxiety disorder (2) Major depressive disorder, recurrent episode (3) Impulse control disorder (4) Mild cognitive disorder EVA JAMES MD Oct 31, 2018 18:38
--- NOTE | 2018-10-31 23:27 | PN ---
DATE: 10/30/2018 PSYCHIATRIC PROGRESS NOTE This late entry for 10/30/2017 covers elements not covered in my initial note. SUBJECTIVE: I met with the patient in the evening. The patient slept 7 hours previous night. Her visited and the visit went well. Also discussed with Hanna Melendez, social service staff regarding health insurance determination regarding not meeting further inpatient criteria. The patient is showing improvement, still somewhat anxious, tearful at times, but much improved. REVIEW OF SYSTEMS: Ambulation impaired, in wheelchair. No CV, , pulmonary, eye system symptoms on review. MENTAL STATUS EXAM: Oriented to herself and situation. Speech coherent, has some latency. Abstraction fair, computation impaired, language function intact. Mood and affect is improved. LABORATORY DATA: Reviewed. IMPRESSION: Unchanged from initial note. PLAN: No change from initial note. Transition home on 10/31/2018. MAN Kory JAMES MD DR: ABDELRAHMAN/tree JOB#: [id number] / [id number]
--- NOTE | 2018-10-31 23:27 | DS ---
DATE OF DISCHARGE: 10/31/2018 DISCHARGE SUMMARY AND PSYCHIATRIC PROGRESS NOTE This note covers elements not covered in my initial note. REASON FOR ADMISSION: Please refer to the admission history for details. Briefly, the patient is a 62-year-old female referred to us from Emergency Room [facility] where she presented from home on account of refusing to eat, worsening symptoms of depression, having lost 70 pounds weight, delusional, disorganized with marked anxiety, agitation, being extremely obsessive and marked insomnia. She failed outpatient psychiatric interventions. SIGNIFICANT FINDINGS AND CLINICAL COURSE: Following admission, the patient was seen daily individually by myself from a psychiatric standpoint, medical followup with Dr. Saeed. The patient was extremely depressed, withdrawn, paranoid, anxious, obsessive. Adjustments were made in her psychotropics and she seemed to respond to a combination of Luvox 75 mg at bedtime, melatonin 3 mg at bedtime, Amantadine was at 100 mg a day, Zyprexa 5 mg at bedtime, Abilify 5 mg daily, trazodone 100 mg at bedtime. She was on 2 atypical antipsychotics Zyprexa and Abilify. In 30 days post-discharge if she continues to be stable, the Abilify could be reduced down to 2.5 mg a day for 6 weeks and then discontinued, while the rest are continued. Prior to discharge on 10/31/2018, she slept 6-3/4 hours previous night, somewhat anxious at times, more so in the evening, takes meds in applesauce. REVIEW OF SYSTEMS: Ambulation impaired, in wheelchair. No CV, , pulmonary, eye system symptoms on review. MENTAL STATUS EXAM: Oriented to herself and situation. Speech has some latency, coherent. Abstraction fair, computation impaired, language function intact, attention span short. Mood and affect still somewhat anxious, dysphoric, but improved. LABORATORY DATA: Reviewed. FINAL DIAGNOSES: Major depressive disorder with psychotic features in partial remission; anxiety disorder, unspecified; impulse control disorder, unspecified. Rest unchanged from admission. DISCHARGE MEDICATIONS: Please refer to the MRAD. DISCHARGE INSTRUCTIONS: Outpatient psychiatric followup at the [facility] in [place] and medical followup with her primary care physician. Time for discharge day management greater than 30 minutes. MAN Kory JAMES MD DR: ABDELRAHMAN/tree JOB#: [id number] / [id number]
== END 2018-10-31 17:45 | disposition home health service (06) | DRG 885 ==
LOC: GEROPSY 20:09
PROVIDERS: ADMIT Psychiatry & Neurology Psychiatry; ATTEND Psychiatry & Neurology Psychiatry
DX: F32.3 Major depressive disorder, single episode, severe with psychotic features (principal); E43 Unspecified severe protein-calorie malnutrition; R45.851 Suicidal ideations; J96.11 Chronic respiratory failure with hypoxia; N39.0 Urinary tract infection, site not specified; J84.112 Idiopathic pulmonary fibrosis; F42.9 Obsessive-compulsive disorder, unspecified; F41.9 Anxiety disorder, unspecified; F63.9 Impulse disorder, unspecified; G47.00 Insomnia, unspecified; I25.2 Old myocardial infarction; G47.33 Obstructive sleep apnea (adult) (pediatric); G89.4 Chronic pain syndrome; E03.9 Hypothyroidism, unspecified; M48.00 Spinal stenosis, site unspecified; E78.5 Hyperlipidemia, unspecified; M81.0 Age-related osteoporosis without current pathological fracture; I10 Essential (primary) hypertension; D64.9 Anemia, unspecified; F09 Unspecified mental disorder due to known physiological condition; Z88.6 Allergy status to analgesic agent; K59.00 Constipation, unspecified; Z91.048 Other nonmedicinal substance allergy status; Z82.49 Family history of ischemic heart disease and other diseases of the circulatory system; Z87.891 Personal history of nicotine dependence; Z81.8 Family history of other mental and behavioral disorders; Z79.899 Other long term (current) drug therapy; Z85.828 Personal history of other malignant neoplasm of skin; Z86.010 Personal history of colon polyps
CPT/HCPCS: 36415; 80053; 80061; 81001; 82306; 82607; 83036; 83540; 83550; 83735; 84436; 84443; 84480; 85025; 86592; 87086; 87186; 93005; 93970; 92610; 97110; 97116; 97530; 97535